=== PATIENT | female | born 1935 | race Caucasian/White ===

== ENCOUNTER → 2022-03-03 | Outpatient (CLI) | payer MEDICARE ==
[2022-03-03 21:59] LABS: Bun/Creatinine Ratio 36.8 (12.0-20.0); Calcium, Blood 9.4 mg/dL (8.5-10.1); Creatinine, Blood 0.84 mg/dL (0.40-1.00); Potassium, Blood 3.9 mmol/L (3.5-5.5)
== END | disposition home or self-care (01) ==
LOC: LAB 18:36 → LAB SHORT 18:36
PROVIDERS: Physician Assistant
DX: I10 Essential (primary) hypertension (principal)
CPT/HCPCS: 80048

== ENCOUNTER 2023-03-01 20:14 | Inpatient (IN) | payer OTHER ==
[~2023-03-01] VITALS: Ht 157.5 cm; Wt 50.6 kg
[2023-03-01 20:31] LABS: Hematocrit 45.5 % (33.0-51.0); Hemoglobin 14.7 g/dL (11.5-16.0); Mean Corpuscular HGB 30.8 pg (26.0-34.0); Mean Corpuscular HGB Conc 32.3 g/dL (31.5-36.5); Mean Corpuscular Volume 95 fL (80-100); Mean Platelet Volume 10.5 fL (9.1-12.4); Platelet Count 336 K/mm3 (150-400); RDW Coefficient Variation 12.2 % (11.7-14.2); RDW Standard Deviation 42.6 fL (35.1-46.3); Red Blood Cell Count 4.78 M/mm3 (3.80-5.20); White Blood Cell Count 20.77 K/mm3 (4.00-11.30)
[2023-03-01 20:57] LABS: Albumin/Globulin Ratio 1.1 (0.8-1.8); Bilirubin, Total 0.5 mg/dL (0.1-1.0); Bun/Creatinine Ratio 16.2 (12.0-20.0); Calcium, Blood 9.9 mg/dL (8.5-10.1); Creatinine, Blood 0.87 mg/dL (0.40-1.00); Globulin, Blood 3.6 g/dL (2.2-4.0); Potassium, Blood 4.4 mmol/L (3.5-5.5); Total Protein, Blood 7.6 g/dL (6.4-8.2)
[2023-03-01 21:23] LABS: Source, Urine Foley catheter
[2023-03-01 21:53] LABS: Bilirubin, Urine Neg (Neg); Blood, Urine Neg (Neg); Glucose Qualitative, Urine Neg (Neg); Ketones, Urine 1+ (Neg); Leukocyte Esterase, Urine Neg (Neg); Nitrite, Urine Neg (Neg); Protein, Urine 1+ (Neg); Urobilinogen, Urine NORM (Normal)
[2023-03-01 21:55] LABS: BASOPHILS PERCENT MAN 1 % (0-2); EOSINOPHILS PERCENT MAN 0 % (0-6); LYMPHOCYTES % ATYPICAL MANUAL 1 % (0-0); LYMPHOCYTES ABSOLUTE MAN 15.36 K/mm3 (0.84-5.20); LYMPHOCYTES PERCENT MAN 73 % (21-46); MONOCYTES ABSOLUTE MAN 0.83 K/mm3 (0.16-1.47); MONOCYTES PERCENT MAN 4 % (4-13); NEUTROPHILS ABSOLUTE MAN 4.36 K/mm3 (1.96-9.15); SEG NEUTROPHILS PERCENT MAN 21 % (41-73); TOTAL CELLS COUNTED 100
[2023-03-01 22:03] LABS: Appearance, Urine Clear (Clear); Color, Urine Pale Yellow (P-Yellow)
[2023-03-01 22:08] LABS: U Amphetamine Screen Not Detected; U Barbituate Screen Not Detected; U Benzodiazapine Screen Not Detected; U Buprenorphine Screen Not Detected; U Cannabinoids Screen DETECTED; U Cocaine Screen Not Detected; U Methadone Screen Not Detected; U Methamphetamine Screen Not Detected; U Opiates Screen Not Detected; U Oxycodone Screen Not Detected; U Phencyclidine Screen Not Detected; U Propoxyphene Screen Not Detected
[2023-03-01 22:17] LABS: Base Excess Venous 2.8 mmol/L; Bicarbonate Venous 26.3 mmol/L (24.0-30.0); PCO2 Venous 44.2 mmHg (38-42)
[2023-03-02] VITALS (85 sets, daily range): BP systolic 97–220; BP diastolic 51–118
[2023-03-02 03:53] LABS: Hematocrit 41.8 % (33.0-51.0); Hemoglobin 14.1 g/dL (11.5-16.0); Mean Corpuscular HGB 31.1 pg (26.0-34.0); Mean Corpuscular HGB Conc 33.7 g/dL (31.5-36.5); Mean Corpuscular Volume 92 fL (80-100); Mean Platelet Volume 10.4 fL (9.1-12.4); Platelet Count 337 K/mm3 (150-400); RDW Coefficient Variation 12.2 % (11.7-14.2); RDW Standard Deviation 41.1 fL (35.1-46.3); Red Blood Cell Count 4.53 M/mm3 (3.80-5.20); White Blood Cell Count 20.88 K/mm3 (4.00-11.30)
[2023-03-02 04:16] LABS: Albumin, Blood 3.7 g/dL (3.4-5.0); Albumin/Globulin Ratio 1.2 (0.8-1.8); Bilirubin, Total 0.5 mg/dL (0.1-1.0); Bun/Creatinine Ratio 18.8 (12.0-20.0); Calcium, Blood 9.8 mg/dL (8.5-10.1); Creatinine, Blood 0.8 mg/dL (0.40-1.00); Globulin, Blood 3.2 g/dL (2.2-4.0); Potassium, Blood 3.7 mmol/L (3.5-5.5); Total Protein, Blood 6.9 g/dL (6.4-8.2)
--- NOTE | 2023-03-02 04:25 | NUR ---
PROPOFOL INFILTRATE TO LEFT UPPER ARM. NOTHING OBTAINED WITH DRAWING BACK, FLUSHED WITH NS. LEFT AC SITE DC'D. BP CUFF MOVED TO RIGHT WRIST. WHILE PROPOFOL OFF PATIENT ACTIVE IN BED PULLING AWAY FROM PAIN, BRING KNEES UP, CONTINUES TO NOT OPEN EYES.
[2023-03-02 06:36] LABS: BAND PERCENT MAN 1 % (0-8); BASOPHILS PERCENT MAN 1 % (0-2); EOSINOPHILS PERCENT MAN 0 % (0-6); LYMPHOCYTES PERCENT MAN 57 % (21-46); MONOCYTES ABSOLUTE MAN 1.46 K/mm3 (0.16-1.47); MONOCYTES PERCENT MAN 7 % (4-13); SEG NEUTROPHILS PERCENT MAN 34 % (41-73); TOTAL CELLS COUNTED 100
--- NOTE | 2023-03-02 06:36 | NUR ---
SUMMARY PATIENT REMAINS INTUBATED AND SEDATED WITH PROPOFOL [address] WITH VENT ACVC+ 16, TV 350, PEEP 5, FIO2 25% . PATIENT CONTINUES TO NOT OPEN HER EYES, NOT FOLLOWING DIRECTIONS. CAMPBELL RIGHT MORE THAN LEFT, INCREASED MOVEMENT WITH STIMULI. PULLING KNEES UP FREQUENTLY. OG IN PLACE AND CLAMPED. NICARDIPINE DRIP ON FOR ONLY SHORT TIME TONIGHT. BP 153/67.
--- NOTE | 2023-03-02 11:35 | NUR ---
SHIFT ASSESSMENT PT INTUBATED AND SEDATED, VENT SETTINGS AC-16/350/5/25% c SATS >95%. PROPOFOL @ 30MCG'S. BL SOFT WRIST RESTRAINTS ON. PT GIVEN SEDATION VACATION MID MORNING , DURING THAT TIME PT NOT FOLLOWING COMMANDS BUT MOVING ALL EXTREMITIES. COUGH AND GAG PRESENT. PUPILS REMAIN PINPOINT. OGT CLAMPED. TEMP PROBE DODGE DRAINING YELLOW URINE. NO BM. EEG SCHEDULED FOR THIS AFTERNOON. WILL MONITOR CLOSELY.
[2023-03-02] MEDS ORDERED: SERT50 PO (17:27)
[2023-03-02] MEDS ORDERED: ESCI20 (17:28)
[2023-03-02] MEDS ORDERED: DONE5 PO (17:29)
[2023-03-02] MEDS ORDERED: Desyrel150 MG PO (17:29)
--- NOTE | 2023-03-02 18:07 | NUR ---
SHIFT SUMMARY PT REMAINS INTUBATED AND SEDATED. NO CHANGES TO VENT SETTINGS. PROPOFOL CONTINUES @ 30MCG'S. EEG COMPLETED THIS AFTERNOON, AWAITING RESULTS. NO SEIZURES NOTED TODAY. TEMP PROBE DODGE DRAINING BRIGIDO URINE. 100ML/HR OF NS STARTED X 1L. FAMILY AT BEDSIDE THIS AFTERNOON, NOTIFIED THIS NURSE OF PTS ETOH USAGE, STATED PT HAS NOT HAD A DRINK IN 2 DAYS PRIOR TO SEIZURE. NO OTHER ACUTE CHANGES TODAY.
--- NOTE | 2023-03-02 20:09 | NUR ---
PATIENT REMAINS INTUBATED AND SEDATED PROPOFOL 30 MCG, PATIENT KEEPING EYES CLOSED, PUPILS PINPOINT. WITH SLIGHT STIMULI, MOVING ALL EXTREMITIES RIGHT ARM MORE THAN LEFT. PATIENT CAN STRAIGHTEN LEGS, BUT LIKES TO BEND KNEES UP TIGHT. ETT IN PLACE WITH VENT ACVC+ 16, TV 350, PEEP 5, FIO2 25% OG IN PLACE AND CLAMPED. DODGE DRAINING SMALL AMT OF BRIGIDO URINE.
[2023-03-03] VITALS (18 sets, daily range): BP systolic 104–184; BP diastolic 56–105
[2023-03-03 04:06] LABS: BASOPHILS ABSOLUTE AUTO 0.07 K/mm3 (0.00-0.23); BASOPHILS PERCENT AUTO 0 % (0-2); EOSINOPHILS ABSOLUTE AUTO 0.06 K/mm3 (0.00-0.68); EOSINOPHILS PERCENT AUTO 0 % (0-6); Hematocrit 39.4 % (33.0-51.0); Hemoglobin 13.5 g/dL (11.5-16.0); IMMATURE GRAN ABSOLUTE AUTO 0.07 K/mm3 (0.00-0.10); IMMATURE GRAN PERCENT AUTO 0 % (0-1); LYMPHOCYTES ABSOLUTE AUTO 6.64 K/mm3 (0.84-5.20); LYMPHOCYTES PERCENT AUTO 37 % (21-46); MONOCYTES ABSOLUTE AUTO 2.33 K/mm3 (0.16-1.47); MONOCYTES PERCENT AUTO 13 % (4-13); Mean Corpuscular HGB 30.8 pg (26.0-34.0); Mean Corpuscular HGB Conc 34.3 g/dL (31.5-36.5); Mean Corpuscular Volume 90 fL (80-100); Mean Platelet Volume 10.8 fL (9.1-12.4); NEUTROPHILS ABSOLUTE AUTO 8.63 K/mm3 (1.96-9.15); NEUTROPHILS PERCENT AUTO 49 % (41-73); Platelet Count 245 K/mm3 (150-400); RDW Coefficient Variation 12.2 % (11.7-14.2); RDW Standard Deviation 40.1 fL (35.1-46.3); Red Blood Cell Count 4.38 M/mm3 (3.80-5.20)
[2023-03-03 04:15] LABS: Albumin, Blood 3.3 g/dL (3.4-5.0); Albumin/Globulin Ratio 1.1 (0.8-1.8); Bilirubin, Total 0.9 mg/dL (0.1-1.0); Bun/Creatinine Ratio 24.3 (12.0-20.0); Calcium, Blood 9.1 mg/dL (8.5-10.1); Creatinine, Blood 0.74 mg/dL (0.40-1.00); Potassium, Blood 3.7 mmol/L (3.5-5.5); Total Protein, Blood 6.3 g/dL (6.4-8.2)
--- NOTE | 2023-03-03 06:28 | NUR ---
SUMMARY PATIENT REMAINS INTUBATED AND SEDATED. PROPOFOL 30 MCG CONTINUES, MOVES ALL EXTREMITIES RIGHT ARM MORE THAN LEFT ARM, LIKES TO BEND HER KNEES UP. THIS MORNING PATIENT OPENING BOTH EYES TO STIMULI, BUT CONTINUES TO NOT FOLLOW DIRECTIONS. ETT REMAINS IN PLACE WITH VENT ACVC+ 16, TV 350, PEEP 5, FIO2 25% SUCTIONING THIN CLEAR SECRETIONS VIA ETT AND ORAL. OG IN PLACE REMAINS CLAMPED. MEDICATED ONCE WITH DILAUDID DURING THE NIGHT FOR PAIN. NO ISSUES WITH HYPERTENSION T/O NIGHT.
--- NOTE | 2023-03-03 14:41 | NUR ---
Initial palliative care consult: Dede is an 87 year old with a history of dementia, HTN, osteoporosis, ETOH use and chronic pain with chronic narcotic use. Dede was admitted on 03/01/23 with new onset seizures. Attended the ICU IDT meeting earlier today and received an update. At that time, Dede was still intubated. No family at the bedside. This afternoon, Dede was successfully extubated. Attempted to visit with her in the room this afternoon. Introduced myself and asked her a couple simple yes/no questions. She stared at me and did not give any verbal response. Spoke with nursing who reports pt's dtr has not yet been in to visit her today. Requested nursing to contact PC if dtr comes to visit. Would like to discuss advanced care planning with pt's dtr as Dede is unable to participate in any meaningful conversation at this time. Spoke with CM who reports she has attempted to reach out to dtr, Shikha, twice today with messages but so far has not gotten a return call. Chart reviewed. PC to follow up with dtr when available.
--- NOTE | 2023-03-03 17:13 | NUR ---
SHIFT SUMMARY PT HAS DONE WELL THIS SHIFT S/P EXTUBATION. PT REMAINS ON 3L O2 NC. PT RESTLESS AND KICKING LEGS OUT OF THE SIDE OF THE BED MOST OF THE SHIFT. PT UNABLE TO BE REDIRECTED. PT ABLE TO SQUEEZE HANDS UPON COMMAND PRIOR TO EXTUBATION, PT NOW DOES NOT FOLLOW ANY COMMANDS. PT IS CONFUSED AND PICKING AT LINES/TUBES. PT COMPLAINED OF BACK PAIN, PT MED PER EMAR THIS AFTERNOON. PT HAS BEEN RESTING QUIETLY SINCE RECIEVING PAIN MEDS. NS INFUSING TKO. DODGE TEMP PROBE REMAINS IN PLACE WITH DARK YELLOW OUTPUT NOTED. VITAL SIGNS STABLE. PT DAUGHTER AT BEDSIDE AT THIS TIME SPEAKING WITH PALLIATIVE CARE RN. WILL CONTINUE TO MONITOR AND REPORT OFF TO ONCOMING RN.
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
[2023-03-04] VITALS (10 sets, daily range): BP systolic 153–176; BP diastolic 62–126
[2023-03-04 03:42] LABS: Hematocrit 38.5 % (33.0-51.0); Hemoglobin 13.1 g/dL (11.5-16.0); Mean Corpuscular HGB 31.2 pg (26.0-34.0); Mean Corpuscular Volume 92 fL (80-100); Mean Platelet Volume 10.6 fL (9.1-12.4); Platelet Count 268 K/mm3 (150-400); RDW Coefficient Variation 12.3 % (11.7-14.2); RDW Standard Deviation 41.1 fL (35.1-46.3); White Blood Cell Count 15.35 K/mm3 (4.00-11.30)
[2023-03-04 04:05] LABS: Albumin, Blood 3.2 g/dL (3.4-5.0); Albumin/Globulin Ratio 1.1 (0.8-1.8); Bilirubin, Total 0.7 mg/dL (0.1-1.0); Calcium, Blood 9.2 mg/dL (8.5-10.1); Creatinine, Blood 0.67 mg/dL (0.40-1.00); Globulin, Blood 2.9 g/dL (2.2-4.0); Potassium, Blood 3.3 mmol/L (3.5-5.5); Total Protein, Blood 6.1 g/dL (6.4-8.2)
--- NOTE | 2023-03-04 06:20 | NUR ---
SHIFT SUMMARY: NO ACUTE CHANGES THROUGHOUT THE NIGHT. PT WAS ABLE TO GET GOOD SLEEP UNTIL ABOUT 0200 THEN PT WOKE UP AND WAS CONFUSED AND NOT COOPERATIVE WITH CARE. PT CONTINUOUSLY ATTEMPTING TO GET OUT OF BED, PULLING AT CATHETER AND THEN PULLED OUT PIV IN RAC. AT THIS TIME, 0400, PT PLACED IN BILATERAL SWR. PT REMAINS AMS AND DOES NOT FOLLOW DIRECTIONS. PT ATTTEMPTS TO KICK AT STAFF MEMBERS WHEN ATTEMPTING PT CARE. PT EDUCATED ABOUT THE NEED TO STOP THIS BEHAVIOR BUT DOES NOT COMPREHEND. PT REMAINS ON NC @ 2LPM; SPO2 96<. SR TO ST ON MONITOR WITH SBP 150-160'S. DODGE CATH REMAINS IN PLACE AND DRAINING TO GRAVITY; BRIGIDO URINE, AND DECREASED OUTPUT. PT REFUSED ORAL CARE THIS SHIFT. STATUS CHANGE TO PCU WITH TELE EARLY THIS MORNING. BED LOWERED, CALL LIGHT IN PLACE, WILL CONTINUE TO MONITOR UNTIL ONCOMING RN ARRIVES.
--- NOTE | 2023-03-04 08:43 | NUR ---
[place] of Care: Care assumed at 0700hr. Patient alert, but only oriented to self. Confused to place, time, date, reason for admission. Bilateral soft wrist restraints in place at shift change. Restraints removed and tele-sitter initiated, with goal to prevent patient from pulling out her IV and climbing out of bed. Re-directable by [facility] staff this, but not re-directable by tele-sitter thus far this morning. Cantu cath removed shortly after shift change. 2-person assist to BEC, then to recliner. Peripheral IV x1 patent and intact. ST eval ordered for this morning. Will continue to monitor.
--- NOTE | 2023-03-04 18:06 | NUR ---
SHIFT SUMMARY: ASSUMED CARE OF PT UPON HER TRANSFER FROM ICU AT 1527. ALERT TO SELF ONLY, NOT DIRECTABLE, CANNOT UNDERSTAND VERBAL DIRECTIONS. NO RESTRAINTS IN USE. ORDER FOR NO IV ACCESS NEEDED IS PLACE. ON ROOM AIR, LUNGS CLEAR, NO COUGH. SEIZURE AND ASPIRATION PRECAUTIONS IN PLACE. DENIED PAIN, N/V. SCD'S AT BEDSIDE, BUT PT IS GETTING OOB SO FREQUENTLY THAT THESE WOULD POSE A SIGNIFICANT FALL HAZARD SO THEY ARE NOT ON. REQUESTED MEDICATION TO HELP CALM HER DOWN.
--- NOTE | 2023-03-05 05:09 | NUR ---
SHIFT SUMMARY PT LAYING IN BED DURING BEDSIDE REPORT, PT RESTING- PER REPORT SEROQUEL AND BP TO BE GIVEN FROM 1700- PT CONFUSED AND ATTEMPTING TO GET OF THE BED SEVERAL TIMES T/O SHIFT- UNABLE TO DIRECT PT WHEN UP AND AMBULATING- ASSISTED PT TO BSC- PT BOTH CONTINENT AND INCONTIENT OF URINE- PT CONFUSED T/O NIGHT AND KEPT ON ASKING THIS NURSE TO GO IN HER ROOM AND GET HER BELONGINGS- BED TO LOW POSITION, CALL LIGHT WITHIN REACH, BED ALARM IN PLACE
[2023-03-05 07:20] LABS: Thyroid Stimulating Hormone 1.62 uIU/mL (0.360-4.800)
[2023-03-05 07:34] VITALS: BP 186/88
[2023-03-05 09:17] LABS: Bun/Creatinine Ratio 18.9 (12.0-20.0); Calcium, Blood 9.3 mg/dL (8.5-10.1); Creatinine, Blood 0.53 mg/dL (0.40-1.00)
[2023-03-05 15:21] VITALS: BP 152/76
--- NOTE | 2023-03-05 18:12 | NUR ---
SHIFT SUMMARY NO ACUTE CHANGES THIS SHIFT. REMAINS CONFUSED, COGNITIVELY UNABLE TO BE DIRECTED FOR SIMPLE TASKS. ORIENTED TO SELF ONLY. WILL ATTEMPT TO GET OOB, BED ALARM ON. SAT IN THE CHAIR FOR APPROX AN HOUR, CHAIR ALARM WAS ON. PT NOT EATING THOUGH IS A FEEDER, UNABLE TO COGNITIVELY UNDERSTAND TO EAT. MEDS ARE CRUSHED AND PUT IN PUDDING. WILL SWALLOW THE PUDDING W/MEDS. NO IV SITE PER MD. IS CONTINENT/INCONTINENT OF URINE & STOOL. DID USE BSC ONCE TODAY. PLAN IS FOR PLACEMENT UPON DC.
[2023-03-05 19:47] VITALS: BP 159/75
[2023-03-06 04:14] VITALS: BP 147/69
--- NOTE | 2023-03-06 05:25 | NUR ---
SHIFT SUMMARY PT LAYING IN BED ASLEEP DURING BEDSIDE REPORT- NO S/S DISTRESS- PT AWAKE AND TOOK SCHEDULED HS MEDICATIONS- PT UP TO BSC AND URINATED WITHOUT PROBLEMS- PT CONFUSED AND HALLUCINATING HAVING CONVERSATION WITH SOMEONE IN THE ROOM- APPLIED 2L OF O2 VIA NC FOR SATS WERE 87%- RECHECK OF O2 SATS ON 2L= 93% BED LOW POSITION, CALL LIGHT WITHIN REACH, BED ALARM IN PLACE
[2023-03-06 07:28] VITALS: BP 147/65
[2023-03-06 15:30] VITALS: BP 135/66
--- NOTE | 2023-03-06 17:29 | NUR ---
SHIFT SUMMARY NO ACUTE CHANGES DURING SHIFT. PT ALERT TO SELF, CONFUSED. PT VERY LETHARGIC TODAY, POSSIBLY D/T MEDICATIONS. MEDICATION SCHEDULE CHANGED BY MD. PT REMAINS ON 2L NC. PT PENDING PLACEMENT ONCE MEDICALLY CLEARED. WILL CONTINUE TO MONITOR. CALL LIGHT WITHIN REACH.
[2023-03-06 19:42] VITALS: BP 92/52
[2023-03-06 19:44] VITALS: BP 86/52
--- NOTE | 2023-03-06 19:45 | NUR ---
NOTIFIED PTS PRIMARY RN OF PTS B/P.
[2023-03-07 00:11] VITALS: BP 113/64
[2023-03-07 04:03] VITALS: BP 120/60
--- NOTE | 2023-03-07 05:50 | NUR ---
SHIFT SUMMARY PT LAYING IN BED ASLEEP DURING BEDSIDE ROUNDS- PT TOOK SCHEDULED TRAZADONE AT BEGINNING OF SHIFT PER ORDER, ENCOURAGED PT TO DRINK FLUIDS AND PT TOOK SCHEDULED HS MEDS WITHOUT PROBLEMS, PT HALLUCINATING AND TALKING TO IMAGINARY PEOPLE T/O SHIFT - PT REMOVED SOILED BRIEF - PT ABLE TO FOLLOW DIRECTIONS TO ROLL BACK IN FORTH IN BED WHEN CLEANING HER NETTIE AREA AND APPLYING A NEW BRIEF-BED ALARM IN PLACE, BED LOW POSITION, CALL LIGHT WITHIN REACH
[2023-03-07 07:23] LABS: Albumin, Blood 2.9 g/dL (3.4-5.0); Albumin/Globulin Ratio 0.9 (0.8-1.8); Bilirubin, Total 0.3 mg/dL (0.1-1.0); Bun/Creatinine Ratio 41.5 (12.0-20.0); Calcium, Blood 9.7 mg/dL (8.5-10.1); Creatinine, Blood 0.8 mg/dL (0.40-1.00); Globulin, Blood 3.2 g/dL (2.2-4.0); Potassium, Blood 4.1 mmol/L (3.5-5.5); Total Protein, Blood 6.1 g/dL (6.4-8.2)
[2023-03-07 07:37] VITALS: BP 133/62
[2023-03-07 15:22] VITALS: BP 134/73
--- NOTE | 2023-03-07 18:15 | NUR ---
SHIFT SUMMARY/TRANSFER NOTE PT TRANSFERRED FROM ROOM 345 ON MEDICAL FLOOR. REPORT RECEIVED FROM CASSANDRA NICHOLE. PT HAS HAD NO COMPLAINTS SINCE THE TRANSFER AND IS CURRENTLY SLEEPING. WILL REPORT TO ONCOMING NURSE.
[2023-03-08 07:11] LABS: BASOPHILS ABSOLUTE AUTO 0.07 K/mm3 (0.00-0.23); BASOPHILS PERCENT AUTO 1 % (0-2); EOSINOPHILS ABSOLUTE AUTO 0.15 K/mm3 (0.00-0.68); EOSINOPHILS PERCENT AUTO 1 % (0-6); Hematocrit 43.7 % (33.0-51.0); Hemoglobin 14.3 g/dL (11.5-16.0); Mean Corpuscular HGB 30.6 pg (26.0-34.0); Mean Corpuscular HGB Conc 32.7 g/dL (31.5-36.5); Mean Corpuscular Volume 94 fL (80-100); Mean Platelet Volume 10.6 fL (9.1-12.4); Platelet Count 299 K/mm3 (150-400); RDW Coefficient Variation 12.2 % (11.7-14.2); RDW Standard Deviation 42.1 fL (35.1-46.3); Red Blood Cell Count 4.67 M/mm3 (3.80-5.20); White Blood Cell Count 13.49 K/mm3 (4.00-11.30)
[2023-03-08 07:16] LABS: IMMATURE GRAN ABSOLUTE AUTO 0.04 K/mm3 (0.00-0.10); IMMATURE GRAN PERCENT AUTO 0 % (0-1); LYMPHOCYTES ABSOLUTE AUTO 7.07 K/mm3 (0.84-5.20); LYMPHOCYTES PERCENT AUTO 52 % (21-46); MONOCYTES PERCENT AUTO 8 % (4-13); NEUTROPHILS ABSOLUTE AUTO 5.06 K/mm3 (1.96-9.15); NEUTROPHILS PERCENT AUTO 38 % (41-73)
[2023-03-08 07:20] VITALS: BP 165/67
[2023-03-08 07:27] LABS: Bun/Creatinine Ratio 46.5 (12.0-20.0); Calcium, Blood 9.8 mg/dL (8.5-10.1); Creatinine, Blood 0.67 mg/dL (0.40-1.00); Potassium, Blood 3.9 mmol/L (3.5-5.5)
--- NOTE | 2023-03-08 10:11 | NUR ---
CONCERN FOR SAFE SWALLOW THIS RN REPORTED TO DR. MENDEZ THAT PT WAS HAVING TROUBLE SWALLOWING HER PILLS THIS AM AND THERE WAS CONCERN SHE WAS ASPIRATING THEM BY THE SOUND OF HER MOIST COUGH AFTER ATTEMPTING TO SWALLOW THEM. ORDER FOR ST EVAL PLACED.
--- NOTE | 2023-03-08 10:19 | NUR ---
SPOKE WITH ST SPOKE WITH ST ABOUT PREVIOUS ST EVALUATION FROM LAST WEEK. PLAN TO START CRUSHING MEDS AND PLACE IN APPLESAUCE TO HELP WITH THE PTS ABILITY TO SWALLOW.
[2023-03-08 15:39] VITALS: BP 137/64
[2023-03-08] MEDS ORDERED: AMLO10 PO (15:44)
[2023-03-08] MEDS ORDERED: FOLI1 PO (15:44)
[2023-03-08] MEDS ORDERED: Seroquel Xr50 MG PO (15:45)
[2023-03-08] MEDS ORDERED: B-1100 M1 PO (15:45)
[2023-03-08] MEDS ORDERED: LEVE500 PO (15:45)
--- NOTE | 2023-03-08 17:07 | NUR ---
SHIFT SUMMARY PT ASKS TO GO HOME OFTEN OR WHEN SHE WILL BE LEAVING. PT REORIENTED WITH MINIMAL UNDERSTANDING. CARE MANAGEMENT WORKING ON A SAFE DC PLAN. VS REVIEWED. PT INCONT T/O SHIFT. UP IN CHAIR THIS AFTERNOON WATCHING TV. POOR APPETITE, BUT DOES EAT SOME OF EACH MEAL WITH ASSISTANCE. MEDS TO ME CRUSHED IN APPLESAUCE PT STRUGGLED WITH SWALLOWING THEM WHOLE THIS AM. NO OTHER ACUTE CHANGES IN ASSESSMENT AT THIS TIME. CALL LIGHT IN REACH.
[2023-03-09 07:44] VITALS: BP 132/68
--- NOTE | 2023-03-09 13:53 | NUR ---
Spiritual Care Visit. Pt. is soundly resting in a recliner. Family members are present and welcome my visit. On recent visitng attempts the Pt. has been unable to respond so I facilitated a life review of the Pt. and family. Consider matters of see and belief. Daughter displays evidence of trust and hope. Family verbalized gratitude for the spiritual care visit.
--- NOTE | 2023-03-09 16:23 | NUR ---
DISCHARGE PT DISCHARGED AT 1619. PT NEW WHEELCHAIR WAS DELIVERED BY [facility] PRIOR TO DC. PT GIVEN BEDBATH THIS SHIFT. PT DAUGHTER EDUCATED ON DC INSTRUCTIONS AND NEW MEDS. ENCOURAGED ABOUT THE IMPORTANCE OF PICKING THEM UP AND STARTING THEM TONIGHT, ESPECIALLY HER KEPPRA. FAMILY STATES THEY UNDERSTAND AND HAVE NO FURTHER QUESTIONS. PT WHEELED OUT BY AIDE AND DRIVEN HOME BY DAUGHTER.
== END 2023-03-09 16:19 | disposition home health service (06) | DRG 100 ==
LOC: ER 20:14 → MEDS 23:49 → ICUW 23:49 → MEDS 03-04 15:27
PROVIDERS: Emergency Medicine; Family Medicine; Family Medicine Adult Medicine; Student in an Organized Health Care Education/Training Program; ADMIT Internal Medicine
PROC: 5A1945Z Respiratory Ventilation, 24-96 Consecutive Hours (ICD-10-PCS; principal; 2023-03-01)
PROC: 0BH17EZ Insertion of Endotracheal Airway into Trachea, Via Natural or Artificial Opening (ICD-10-PCS; 2023-03-01)
PROC: 0DH67UZ Insertion of Feeding Device into Stomach, Via Natural or Artificial Opening (ICD-10-PCS; 2023-03-01)
PROC: 0T9B70Z Drainage of Bladder with Drainage Device, Via Natural or Artificial Opening (ICD-10-PCS; 2023-03-01)
DX: R56.9 Unspecified convulsions (principal); J96.90 Respiratory failure, unspecified, unspecified whether with hypoxia or hypercapnia; M54.9 Dorsalgia, unspecified; I67.9 Cerebrovascular disease, unspecified; I10 Essential (primary) hypertension; Z66 Do not resuscitate; Z51.5 Encounter for palliative care; F32.9 Major depressive disorder, single episode, unspecified; M81.0 Age-related osteoporosis without current pathological fracture; G89.4 Chronic pain syndrome; F11.11 Opioid abuse, in remission; F17.210 Nicotine dependence, cigarettes, uncomplicated; F10.20 Alcohol dependence, uncomplicated; G93.89 Other specified disorders of brain; I65.21 Occlusion and stenosis of right carotid artery; I65.02 Occlusion and stenosis of left vertebral artery; D72.829 Elevated white blood cell count, unspecified; F01.50 Vascular dementia, unspecified severity, without behavioral disturbance, psychotic disturbance, mood disturbance, and anxiety; Z79.899 Other long term (current) drug therapy
CPT/HCPCS: 31500; 36415; 51702; 70450; 70496; 70498; 71045; 80048; 80053; 82607; 82746; 82803; 82947; 84132; 84443; 85025; 85027; 87040; 92526; 92610; 93005; 93010; 94002; 94003; 94760; 95819; 96365-59; 96375-59; 97161; 97166; 97535; 99291-25; A9270; C9113; J1170; J1650; J1953; J2270; J2310; J2704; J3411; J3480; J7030; J7050; Q9967

== ENCOUNTER → 2023-05-31 | Outpatient (CLI) | payer OTHER ==
[~2023-05-31] MED LIST: AMLO10 PO; B-1100 M1 PO; DONE5 PO; Desyrel150 MG PO; ESCI20; FOLI1 PO; LEVE500 PO; SERT50 PO; Seroquel Xr50 MG PO
== END ==
LOC: LAB SHORT 13:20 → LAB 13:20
DX: R41.82 Altered mental status, unspecified (principal)
CPT/HCPCS: 87077; 87086; 87186

== ENCOUNTER 2023-06-23 17:29 | Inpatient (IN) | payer OTHER ==
[~2023-06-23] VITALS: Ht 167.6 cm; Wt 45.9 kg
[2023-06-23] MEDS ORDERED: Zestril30 MG PO (17:42)
[2023-06-23] MEDS ORDERED: TRAZ150T57 PO (17:43)
[2023-06-23 19:08] LABS: BASOPHILS ABSOLUTE AUTO 0.03 K/mm3 (0.00-0.23); BASOPHILS PERCENT AUTO 0 % (0-2); EOSINOPHILS ABSOLUTE AUTO 0.07 K/mm3 (0.00-0.68); EOSINOPHILS PERCENT AUTO 1 % (0-6); Hematocrit 32.7 % (33.0-51.0); IMMATURE GRAN ABSOLUTE AUTO 0.02 K/mm3 (0.00-0.10); IMMATURE GRAN PERCENT AUTO 0 % (0-1); LYMPHOCYTES ABSOLUTE AUTO 4.83 K/mm3 (0.84-5.20); LYMPHOCYTES PERCENT AUTO 47 % (21-46); MONOCYTES ABSOLUTE AUTO 0.62 K/mm3 (0.16-1.47); MONOCYTES PERCENT AUTO 6 % (4-13); Mean Corpuscular HGB 30.6 pg (26.0-34.0); Mean Corpuscular HGB Conc 33.6 g/dL (31.5-36.5); Mean Corpuscular Volume 91 fL (80-100); Mean Platelet Volume 9.9 fL (9.1-12.4); NEUTROPHILS ABSOLUTE AUTO 4.61 K/mm3 (1.96-9.15); NEUTROPHILS PERCENT AUTO 45 % (41-73); Platelet Count 268 K/mm3 (150-400); RDW Coefficient Variation 12.5 % (11.7-14.2); RDW Standard Deviation 42.3 fL (35.1-46.3); Red Blood Cell Count 3.59 M/mm3 (3.80-5.20); White Blood Cell Count 10.18 K/mm3 (4.00-11.30)
[2023-06-23 19:22] LABS: International Normalized Ratio 0.98; Prothrombin Time Results 10.3 Sec (9.7-11.5)
[2023-06-23 19:43] LABS: Albumin, Blood 3.4 g/dL (3.4-5.0); Albumin/Globulin Ratio 1.3 (0.8-1.8); Bilirubin, Total 0.2 mg/dL (0.1-1.0); Bun/Creatinine Ratio 26.6 (12.0-20.0); Calcium, Blood 9.4 mg/dL (8.5-10.1); Creatinine, Blood 0.68 mg/dL (0.40-1.00); Globulin, Blood 2.6 g/dL (2.2-4.0); Magnesium, Blood 1.8 mg/dL (1.6-2.4); Phosphorus, Blood 2.7 mg/dL (2.5-4.9); Potassium, Blood 3.9 mmol/L (3.5-5.5)
[2023-06-23 23:55] VITALS: BP 171/74
[2023-06-24] VITALS (16 sets, daily range): BP systolic 116–184; BP diastolic 51–143
--- NOTE | 2023-06-24 02:12 | NUR ---
ORTHO CONSULT CALLED IN
--- NOTE | 2023-06-24 04:36 | NUR ---
SHIFT SUMMARY S/P FALL, R FEMUR FX PT ARRIVED TO UNIT AT 2330. TRANSFERRED FROM [facility] TO BED WITH 4 PERSON ASST. PT REPORTS PAIN WHEN MOVING. ABLE TO MEDICATE PER EMAR. PT HAS ADVANCED DEMENTIA, ABLE TO REDIRECT EASILY. VERY FORGETFUL, THINKS SHE CAN STILL WALK. CALLS OUT FOR A PERSON NAMED "NAKUL" DURING THE NIGHT. ALL HOME MEDS WERE STARTED. TAKEN WITH APPLESAUCE AND SOME WATER. NPO AT 0030. PULLED IV OUT. ATTEMPTED TO START NEW ONE, UNSUCESSFUL. AQUIRED SKIN TEAR AFTER PULLING IV OUT, APPLIED PRESSURE, MEPILEX PLACED. BED ALARM ON. NO OTHER CONCERNS AT THIS TIME. CALL LIGHT WITHIN REACH.
[2023-06-24 06:07] LABS: BASOPHILS ABSOLUTE AUTO 0.02 K/mm3 (0.00-0.23); BASOPHILS PERCENT AUTO 0 % (0-2); EOSINOPHILS ABSOLUTE AUTO 0.01 K/mm3 (0.00-0.68); EOSINOPHILS PERCENT AUTO 0 % (0-6); Hematocrit 28.7 % (33.0-51.0); Hemoglobin 9.6 g/dL (11.5-16.0); IMMATURE GRAN ABSOLUTE AUTO 0.04 K/mm3 (0.00-0.10); IMMATURE GRAN PERCENT AUTO 0 % (0-1); LYMPHOCYTES ABSOLUTE AUTO 3.62 K/mm3 (0.84-5.20); LYMPHOCYTES PERCENT AUTO 32 % (21-46); MONOCYTES ABSOLUTE AUTO 0.79 K/mm3 (0.16-1.47); MONOCYTES PERCENT AUTO 7 % (4-13); Mean Corpuscular HGB 30.1 pg (26.0-34.0); Mean Corpuscular HGB Conc 33.4 g/dL (31.5-36.5); Mean Corpuscular Volume 90 fL (80-100); Mean Platelet Volume 10.4 fL (9.1-12.4); NEUTROPHILS ABSOLUTE AUTO 6.93 K/mm3 (1.96-9.15); NEUTROPHILS PERCENT AUTO 61 % (41-73); Platelet Count 230 K/mm3 (150-400); RDW Coefficient Variation 12.4 % (11.7-14.2); RDW Standard Deviation 40.7 fL (35.1-46.3); Red Blood Cell Count 3.19 M/mm3 (3.80-5.20); White Blood Cell Count 11.41 K/mm3 (4.00-11.30)
[2023-06-24 06:25] LABS: Albumin, Blood 3.1 g/dL (3.4-5.0); Albumin/Globulin Ratio 1.3 (0.8-1.8); Bilirubin, Total 0.5 mg/dL (0.1-1.0); Bun/Creatinine Ratio 30.7 (12.0-20.0); Calcium, Blood 9.2 mg/dL (8.5-10.1); Creatinine, Blood 0.65 mg/dL (0.40-1.00); Globulin, Blood 2.4 g/dL (2.2-4.0); Potassium, Blood 3.6 mmol/L (3.5-5.5); Total Protein, Blood 5.5 g/dL (6.4-8.2)
--- NOTE | 2023-06-24 11:42 | NUR ---
SURGERY CONSENT OBTAINED PHONE CONSENT FROM PATIENTS NEXT OF KIN, VERIFIED WITH SECOND RN HER CONSENT TO SURGERY, CONSENT FORM SIGNED AND PLACED IN HER HARD CHART.
--- NOTE | 2023-06-24 14:56 | NUR ---
Brief supportive visit this afternoon. Pt is pleasantly confused A&O to self and family only. Pt reports mild generalized pain. Ended visit to allow Pt to rest. Spoke with Primary RN Reid and reviewed plan of care. Plan for Pt to have surgery today. No immediate concerns. Called and spoke with Pt's daughter Shikha. Shikha reports at baseline Pt as assistive devices for ambulation but refuses to use them and uses wall and furniture. Pt requires assistance with bathing, dressing, and experiences intermittent incontinence. Pt at baseline is confused but on some days even more confused. Brief review of plan of care. Shikha expresses appreciation and is agreeable for continued visits and phone calls. Palliative Care will remain available
--- NOTE | 2023-06-24 15:15 | NUR ---
Into sds via bed. Pt has dementia at baseline, but currently cooperative with care. History, Chart, Medications and Allergies reviewed before start of procedure.Patient confirms NPO status and agrees with scheduled surgery. Lungs clear T/O to Auscultation, but diminished in the bases. Sats>90% on RA. Pt DONNA Trivedi to be contacted to obtaine consents for procedure.New PIV #20 started to left wrist.
--- NOTE | 2023-06-24 19:27 | NUR ---
SHIFT SUMMARY POD0 R HIP FX REPAIR, ALERT BUT ONLY OREIENTED TO SELF, VERY DEMENTED BUT PLEASANT, COOPERATIVE WITH CARE BUT REPEATS QUESTIONS REGULARLY, GAUZE AND COMPRESSION TAPE TO R HIP AND THIGH FROM OR, PT WAKES TO VERBAL STIMULI BUT WAS VERY SLEEPY/SOMNOLENT, SHE DENIES PAIN AT THIS TIME BUT HAS PAIN MEDS AVAILABLE WHEN NEEDED. CALL LIGHT IN REACH, REPORT GIVEN TO RAJ TRUJILLO.
--- NOTE | 2023-06-24 20:40 | NUR ---
MEDICATIONS PT WOULD NOT SWALLOW WHOLE MED IN [facility]. PT TOOK MEDICATION AND HANDED THEM BACK TO ME. ONE MEDICATION FELL ON THE FLOOR, AFTER PT REMOVED IT FROM HER MOUTH. ADDITIONAL MEDICATION REMOVED FROM [facility]. ALL OTHER MEDICATIONS CRUSHED IN APPLESAUCE AND PT TOLERATED SWALLOWING THEM.
[2023-06-25 00:17] VITALS: BP 143/66
--- NOTE | 2023-06-25 04:15 | NUR ---
SHIFT SUMMARY POD 1 R INTERMEDULLARY TROCHANTERIC HIP NAILING. GAUZE/PRESSURE TAPE x2 C/D/I. HX SEVERE DEMENTIA, PT ONLY ORIENTED TO SELF, EASILY REDIRECTABLE. PT HAS BEEN SLEEPY THROUGHOUT MOST OF THE SHIFT. PT INCONTINENT, ATTENS IN PLACE; PT ATTEMPTS TO REMOVE ATTENS, ONE TOTAL SATURATION OF THE BED WITH URINE THIS SHIFT. PT INDICATES PAIN WHEN TURNING IN BED FOR NETTIE CARE. BEDREST AT THIS TIME, AWAITING PT EVAL. PT WEANED OFF 02 NC OVERNIGHT, BI OX IN USE. PT NEEDED MEDICATIONS CRUSHED IN APPLESAUCE, WHEN GIVEN WHOLE, THE PATIENT WOULD TAKE THE PILL OUT OF HER MOUTH AND HAND IT BACK TO ME. BED IN LOWEST POSITION, BED ALARM ON, WILL REPORT TO DAY RN.
[2023-06-25 04:48] VITALS: BP 141/66
[2023-06-25 04:49] LABS: Hematocrit 23.8 % (33.0-51.0); Mean Corpuscular HGB 30.5 pg (26.0-34.0); Mean Corpuscular HGB Conc 33.6 g/dL (31.5-36.5); Mean Corpuscular Volume 91 fL (80-100); Mean Platelet Volume 10.6 fL (9.1-12.4); Platelet Count 246 K/mm3 (150-400); RDW Coefficient Variation 12.8 % (11.7-14.2); RDW Standard Deviation 42.5 fL (35.1-46.3); Red Blood Cell Count 2.62 M/mm3 (3.80-5.20)
[2023-06-25 05:11] LABS: Bun/Creatinine Ratio 30.5 (12.0-20.0); Calcium, Blood 8.9 mg/dL (8.5-10.1); Creatinine, Blood 0.75 mg/dL (0.40-1.00); Magnesium, Blood 1.7 mg/dL (1.6-2.4); Potassium, Blood 4.1 mmol/L (3.5-5.5)
--- NOTE | 2023-06-25 05:32 | NUR ---
IV ACCESS PT PULLED OUT HER IV. THIRD TIME SINCE ADMITTANCE. BLOOD SPOTTTING THROUGHOUT BED, 1x1 AND COBAN PUT OVER SITE TO STOP BLEEDING. FULL LINEN CHANGE. WILL ATTEMPT TO PLACE NEW VASCULAR ACCESS.
[2023-06-25 06:10] LABS: BASOPHILS PERCENT MAN 0 % (0-2); EOSINOPHILS PERCENT MAN 0 % (0-6); LYMPHOCYTES ABSOLUTE MAN 5.79 K/mm3 (0.84-5.20); LYMPHOCYTES PERCENT MAN 42 % (21-46); MONOCYTES ABSOLUTE MAN 0.41 K/mm3 (0.16-1.47); MONOCYTES PERCENT MAN 3 % (4-13); NEUTROPHILS ABSOLUTE MAN 7.59 K/mm3 (1.96-9.15); SEG NEUTROPHILS PERCENT MAN 55 % (41-73); TOTAL CELLS COUNTED 100
--- NOTE | 2023-06-25 07:16 | NUR ---
ASSUMED CARE: PT LAYING IN BED, CALLING OUT TO STAFF. CONFUSED ABOUT WHERE SHE IS AND REQUIRES REORIENTATION. FOREST [employer] AND POLICY PROFESSOR AT BEDSIDE AT THIS TIME. PT FREQUENTLY PULLS IVS AND REMOVES O2. SATURATION CURRENTLY LOW TO MID 90S ON RA.
[2023-06-25 07:18] VITALS: BP 152/62
--- NOTE | 2023-06-25 08:13 | NUR ---
NIGHT RN SPOKE TO DR RODRIGUEZ TO MAKE HIM AWARE OF LACK OF IV ACCESS. STATES PT NEEDS ABX DOSE. MESSAGE FOR PCU EQUITIES ANALYST TO ATTEMPT ACCESS.
--- NOTE | 2023-06-25 10:44 | NUR ---
Pt resting in recliner chair. Pt is pleasantly confused and denies pain at this time. Pt engages in non sensical conversation. Offered brief supportive visit. Spoke with Primary RN Jasmin and discussed case. Therapy has not worked with Pt yet. Spoke with Dr Norton and discussed case. It appears Pt's code status was changed for surgery and was not switched back to DNR. Placed DNR order per V/O from Dr Norton. Palliative Care will remain available
[2023-06-25 14:21] VITALS: BP 115/56
--- NOTE | 2023-06-25 14:41 | NUR ---
PT RETURNED FROM PACU WITH GAUZE AND PRESSURE TAPE TO RIGHT HIP IN TWO SITES. 2L O2 AT THIS TIME VIA NC, NSR ON TELE. DR BOYD CAME TO CHECK IN ON PT. PT DROWSY BUT ROUSES EASILY. NO ACUTE NEEDS OR CONCERNS AT THIS TIME.
--- NOTE | 2023-06-25 18:02 | NUR ---
SHIFT SUMMARY: PT SITTING IN CHAIR MAJORITY OF SHIFT. AMBULATES WITH ONE ASSIST, FWW AND GAIT BELT. MEDICATED X1 FOR PAIN AFTER USING COMMODE. PLANS FOR DC TO SNF WHEN BED AVAILABLE. DAUGHTER AT BEDSIDE THIS AFTERNOON. NO ACUTE NEEDS OR CONCERNS AT THIS TIME.
[2023-06-25 19:27] VITALS: BP 119/54
[2023-06-26] VITALS (7 sets, daily range): BP systolic 87–165; BP diastolic 47–73
--- NOTE | 2023-06-26 04:12 | NUR ---
SHIFT SUMMARY; NO ACUTE CHANGES OVERNIGHT. THE PT IS AXO X1, TO SELF ONLY. THE PT OFTEN CAN NOT CARRY OUT A COMPLETE THOUGHT. THE PT IS A 2X MAX ASSIST W/ A FWW AND A GAIT BELT. THE PT IS VERY RIGID WHEN ATTEMPTING TO STAND AND PIVOT HER FROM THE BED TO THE BSC OR VICE VERSA. THE PT IS POD 2 FOR A R HIP FX REPAIR. THERE IS GAUZE W/ PRESSURE TAPE DRESSING PRESENT ON THE R HIP. THE DRESSING IS C/D/I. THE PT HAS BEEN MEDICATED ONCE FOR PAIN W/ GOOD RELIEF. THE PT HAS BEEN RESTING IN BED FOR THE MAJORITY OF THE NIGHT. THE PT DENIES ANY SOB, CHEST PAIN/PRESSURE OR N/V T/O THE NIGHT. CURRENTLY THE PT IS SLEEPING IN BED WITH THE BED IN THE LOWEST POSITION AND THE CALL LIGHT AT BEDSIDE. FIRE SAFETY MAINTAINED T/O THE NIGHT.
[2023-06-26 04:44] LABS: Hematocrit 21.8 % (33.0-51.0); Hemoglobin 7.4 g/dL (11.5-16.0); Mean Corpuscular HGB 30.8 pg (26.0-34.0); Mean Corpuscular HGB Conc 33.9 g/dL (31.5-36.5); Mean Corpuscular Volume 91 fL (80-100); Mean Platelet Volume 10.5 fL (9.1-12.4); Platelet Count 237 K/mm3 (150-400); RDW Coefficient Variation 12.9 % (11.7-14.2); RDW Standard Deviation 42.5 fL (35.1-46.3); White Blood Cell Count 14.14 K/mm3 (4.00-11.30)
[2023-06-26 05:10] LABS: Bun/Creatinine Ratio 34.9 (12.0-20.0); Calcium, Blood 8.9 mg/dL (8.5-10.1); Creatinine, Blood 0.8 mg/dL (0.40-1.00)
[2023-06-26 05:44] LABS: BASOPHILS PERCENT MAN 0 % (0-2); EOSINOPHILS ABSOLUTE MAN 0.14 K/mm3 (0.00-0.68); EOSINOPHILS PERCENT MAN 1 % (0-6); LYMPHOCYTES % ATYPICAL MANUAL 1 % (0-0); LYMPHOCYTES ABSOLUTE MAN 5.79 K/mm3 (0.84-5.20); LYMPHOCYTES PERCENT MAN 40 % (21-46); MONOCYTES ABSOLUTE MAN 0.84 K/mm3 (0.16-1.47); MONOCYTES PERCENT MAN 6 % (4-13); NEUTROPHILS ABSOLUTE MAN 7.35 K/mm3 (1.96-9.15); SEG NEUTROPHILS PERCENT MAN 52 % (41-73); TOTAL CELLS COUNTED 100
[2023-06-26 12:29] LABS: Source, Urine Clean Catch
[2023-06-26 12:53] LABS: Appearance, Urine Clear (Clear); Bilirubin, Urine Neg (Neg); Blood, Urine Neg (Neg); Color, Urine Yellow (P-Yellow); Glucose Qualitative, Urine Neg (Neg); Ketones, Urine Neg (Neg); Leukocyte Esterase, Urine Neg (Neg); Nitrite, Urine Neg (Neg); Protein, Urine Neg (Neg); Urobilinogen, Urine NORM (Normal)
--- NOTE | 2023-06-26 17:41 | NUR ---
SUMMARY C/O PAIN ON R HIP ONLY WHEN UP AND MOVING, 2 PERSON ASSIST TO THE CHAIR AND BSC, TOLERATED FAIRLY WELL WITH REPEATED CUEING, DOESN'T ALWAYS FOLLOW TOE TOUCH WEIGHT BEARING PRECAUTIONS, PLEASANT AND COOPERATIVE, DENIES ANY SOB TODAY, 96-98% ON RA THIS AFTERNOON, HAD 2 BM TODAY, NO ACUTE CHANGES THIS SHIFT.
--- NOTE | 2023-06-26 22:16 | NUR ---
RAPID RESPONSE RAPID RESPONSE CALLED DUE TO PATIENT LOOSING CONSCIOUSNESS ON THE BSC. PT WAS UP OOB TO BS TO USE THE BATHROOM. PT SLUMPED TO THE LEFT SIDE AND SAID SHE FELT IF SOMETHING WAS WRONG. I STOOD THE PATIENT UP USING THE GAIT BELT TO ASSIST HER BACK TO BED AND SHE WENT LIMP, COMPLETELY UNRESPONSIVE. NOTED THAT THE PT HAD SOILED HERSELF IN BED EVEN AFTER USING THE BSC. PT WAS SAT DOWN ON THE BSC AND A PULSE CHECK WAS PERFORMED. PT WAS SPONTANEOUSLY BREATHING. OTHER NURSES ARRIVED TO THE ROOM AND THE PT WAS LIFTED INTO THE BED AND A SET OF VITALS TAKEN. PT PLACED ON 2LVIA NC BY RESPIRATORY THERAPY. PT BEGAN TO RESPOND TO STERNAL RUBS AND EVENTUALLY OPENED HER EYES AND BEGAN TO CONVORSATE. HOSPITALIST ORDERED TELE AND LEFT THE PATIENT WAS STABLE. PT NOW REMAINS IN BED, APPEARS LETHARGIC BUT RESPONDING APPROPRIATELY. NO NARCOTICS HAVE BEEN ADMINISTERED AT THIS POINT T/O MY SHIFT. IV FLUIDS INFUSING. PLAN TO CHECK VITALS AND MONITOR PATIENT, CALL HOSPITALIST WITH FURTHER CONCERN
[2023-06-27] VITALS (9 sets, daily range): BP systolic 97–155; BP diastolic 42–77
[2023-06-27 04:13] LABS: BASOPHILS ABSOLUTE AUTO 0.02 K/mm3 (0.00-0.23); BASOPHILS PERCENT AUTO 0 % (0-2); EOSINOPHILS ABSOLUTE AUTO 0.04 K/mm3 (0.00-0.68); EOSINOPHILS PERCENT AUTO 0 % (0-6); Hematocrit 20.5 % (33.0-51.0); Hemoglobin 6.8 g/dL (11.5-16.0); IMMATURE GRAN ABSOLUTE AUTO 0.04 K/mm3 (0.00-0.10); IMMATURE GRAN PERCENT AUTO 0 % (0-1); LYMPHOCYTES ABSOLUTE AUTO 4.71 K/mm3 (0.84-5.20); LYMPHOCYTES PERCENT AUTO 37 % (21-46); MONOCYTES ABSOLUTE AUTO 1.13 K/mm3 (0.16-1.47); MONOCYTES PERCENT AUTO 9 % (4-13); Mean Corpuscular HGB 30.5 pg (26.0-34.0); Mean Corpuscular HGB Conc 33.2 g/dL (31.5-36.5); Mean Corpuscular Volume 92 fL (80-100); Mean Platelet Volume 10.7 fL (9.1-12.4); NEUTROPHILS ABSOLUTE AUTO 6.71 K/mm3 (1.96-9.15); NEUTROPHILS PERCENT AUTO 53 % (41-73); Platelet Count 221 K/mm3 (150-400); RDW Coefficient Variation 12.9 % (11.7-14.2); RDW Standard Deviation 43.4 fL (35.1-46.3); Red Blood Cell Count 2.23 M/mm3 (3.80-5.20); White Blood Cell Count 12.65 K/mm3 (4.00-11.30)
[2023-06-27 04:32] LABS: Bun/Creatinine Ratio 25.4 (12.0-20.0); Calcium, Blood 8.2 mg/dL (8.5-10.1); Creatinine, Blood 0.71 mg/dL (0.40-1.00); Potassium, Blood 3.7 mmol/L (3.5-5.5)
--- NOTE | 2023-06-27 04:59 | NUR ---
SHIFT SUMMARY POD3 RIGHT HIP PINNING, SMALL AREA OF EXUDATE NOTED ON AQUACELL. BRUISING NOTED ON THE PATIENTS THIGH AT THE BEGINNING OF THIS SHIFT, THIS HAS SIGNIFIGANTLY GROWN T/O THE NIGHT AND NOW WRAPS AROUND THE INSIDE OF THE PATIENTS THIGH. PT REPORTS THIS IS PAINFUL AND WARM TO THE TOUCH. AM LABS SHOW LOW H/H, DR FUNES ORDERED CT SCAN AND 1U PRBC THIS AM. PT HAS NOT BEEN OOB SINCE RAPID RESPONSE, SEE PREVIOUS NOTE FOR DETAILS. INCONTINENT VOID NOTED. VSS. PT REMAINS ON 2L VIA NC, PT UNABLE TO BE WEANED AT THIS TIME. PT HAS SLEPT ON AND OFF T/O THE NIGHT, APPEARS LETHARGIC. NO NARCOTICS GIVEN T/O THE NIGHT.
--- NOTE | 2023-06-27 06:42 | NUR ---
PATIENT UPDATE PATIENT BECOMING INCREASINLY LETHARGIC, VITAL SIGNS STABLE AT THIS TIME. TELE READS SR 92. RLE WRAPPED WITH RE AT SITE OF HEMATOMA FOR PRESSURE. AWAITING CT SCAN AT THIS TIME. AWAITING BLOOD TO BE READY TO ADMINISTER. PT NOTED TO SHIVER, OR SLIGHTLY SHAKE. C/O BEING COLD, ORAL TEMP WNL. NEW DX OF SEIZURES IN FEBRUARY, SEIZURE PADS PLACED ON BED FOR SAFETY.
--- NOTE | 2023-06-27 07:22 | NUR ---
PT TAKEN TO CT SCAN.
--- NOTE | 2023-06-27 10:35 | NUR ---
1 UNIT PRBC STARTED THIS AM, PT CURRENTLY IN BED BUT KEEPS ATTEMPTING TO GET OOB, REFUSED TO USE BED HAIRSTON, DODGE CATH PLACED THIS AM, UNABLE TO GET PT OOB SAFELY DUE TO SYNCOPAL EPISODE LAST NIGHT AND LOW H&H AND HEMATOMA ON L HIP AREA, PULLING AT LINES AND TUBES, PHOTOGRAPHY MANAGER HAS BEENIN PT'S ROOM FOR CLOSER MONITORING.
--- NOTE | 2023-06-27 11:19 | NUR ---
1:1 SITTER IN PT'S ROOM FOR SAFETY.
[2023-06-27 13:33] LABS: Hematocrit 22.1 % (33.0-51.0); Hemoglobin 7.3 g/dL (11.5-16.0)
--- NOTE | 2023-06-27 18:42 | NUR ---
SUMMARY PT MORE CONFUSED AND ANXIOUS THIS AM, PULLING AT LINES AND ATTEMPTING TO GET OOB, RECEIVED 1 UNIT PRBC, HAD 1:1 SITTER FOR SAFETY, PT WAS MORE CALM AFTER BLOOD TRANSFUSION AND TAKING A NAP THIS AFTERNOON, 1:1 SITTER DC'D THIS AFTERNOON, PT WAS RESTLESS THIS AFTERNOON, ASSISTED TO RECLINER CHAIR, PT IS DOING BETTER, VISITING WITH DAUGHTER WILMER, MORE PLEASANT AND COOPERATIVE THIS AFTERNOON, NO SYNCOPAL EPISODES OR SEIZURE ACTIVITY NOTED, NO OTHER CHANGES THIS SHIFT.
[2023-06-28 04:24] VITALS: BP 149/59
[2023-06-28 05:34] LABS: Hematocrit 22.2 % (33.0-51.0); Hemoglobin 7.3 g/dL (11.5-16.0); Mean Corpuscular HGB 29.2 pg (26.0-34.0); Mean Corpuscular HGB Conc 32.9 g/dL (31.5-36.5); Mean Corpuscular Volume 89 fL (80-100); Mean Platelet Volume 10.6 fL (9.1-12.4); Platelet Count 198 K/mm3 (150-400); RDW Coefficient Variation 16.8 % (11.7-14.2); White Blood Cell Count 10.97 K/mm3 (4.00-11.30)
[2023-06-28 05:54] LABS: Albumin, Blood 2.1 g/dL (3.4-5.0); Albumin/Globulin Ratio 0.8 (0.8-1.8); Bilirubin, Total 0.5 mg/dL (0.1-1.0); Bun/Creatinine Ratio 18.7 (12.0-20.0); Calcium, Blood 8.3 mg/dL (8.5-10.1); Creatinine, Blood 0.64 mg/dL (0.40-1.00); Globulin, Blood 2.6 g/dL (2.2-4.0); Potassium, Blood 4.1 mmol/L (3.5-5.5); Total Protein, Blood 4.7 g/dL (6.4-8.2)
[2023-06-28 05:57] LABS: BASOPHILS PERCENT MAN 1 % (0-2); EOSINOPHILS PERCENT MAN 1 % (0-6); LYMPHOCYTES ABSOLUTE MAN 4.38 K/mm3 (0.84-5.20); LYMPHOCYTES PERCENT MAN 40 % (21-46); MONOCYTES ABSOLUTE MAN 0.32 K/mm3 (0.16-1.47); MONOCYTES PERCENT MAN 3 % (4-13); NEUTROPHILS ABSOLUTE MAN 6.03 K/mm3 (1.96-9.15); SEG NEUTROPHILS PERCENT MAN 55 % (41-73); TOTAL CELLS COUNTED 100
--- NOTE | 2023-06-28 06:13 | NUR ---
SHIFT SUMMARY POD4 RIGHT HIP NAILING. TOP AQUACEL CHANGED D/T SS SATURATION. PT IS MOVING LEG INDEPENDENTLY, BUT C/O PAIN. MEDICATED WITH TORADOL, TYLENOL, AND ULTRAM. PT SLEPT ON AND OFF T/O THE NIGHT. CONFUSION INCREASED T/O THE NIGHT, PT YELLING OUT. PT REMAINED PLEASENT THOUGH. DODGE REMAINS IN PLACE. DRAINING YELLOW URINE. NO STOOL NOTED. PT TOLLERATED MINIMAL PO INTAKE. NO ACUTE EVENTS. TELE READS SINUS T/O THE NIGHT.
[2023-06-28 07:31] VITALS: BP 155/62
[2023-06-28 11:42] VITALS: BP 164/70
[2023-06-28 14:32] VITALS: BP 173/67
[2023-06-28] MEDS ORDERED: TRAM50 PO (15:44)
[2023-06-28] MEDS ORDERED: XARELTO10 M1 PO (15:44)
--- NOTE | 2023-06-28 18:04 | NUR ---
DISCHARGE SUMMARY S/P R HIP FX REPAIR, PT CONFUSED AND UNABLE TO FOLLOW DIRECTIONS MOST OF THE TIME, DISCHARGE PACKET PUT TOGETHER AND GIVEN TO HER SON WHO IS ONE OF HER CARETAKERS WHICH CONTAINED ALL OF HER DISCHARGE INSTRUCTIONS AND PRESCRIPTION/PRESCRIPTION INFORMATION. IV REMOVED PRIOR TO DC, DODGE OUT PRIOR TO DC. PT PICKED UP BY EMS TO BE TRANSPORTED HOME.
[2023-06-29] MEDS ORDERED: DONEPEZIL HCL5 M2 PO (02:36)
[2023-06-29] MEDS ORDERED: AMLODIPINE BESY10 MG PO (02:37)
== END 2023-06-28 17:36 | disposition home health service (06) | DRG 481 ==
LOC: ER 17:29 → SURS 22:53
PROVIDERS: Emergency Medicine; Family Medicine; Hospitalist; Orthopaedic Surgery; ADMIT Internal Medicine
PROC: 0QS634Z Reposition Right Upper Femur with Internal Fixation Device, Percutaneous Approach (ICD-10-PCS; principal; 2023-06-24 15:30)
PROC: 30233N1 Transfusion of Nonautologous Red Blood Cells into Peripheral Vein, Percutaneous Approach (ICD-10-PCS; 2023-06-26)
DX: S72.141A Displaced intertrochanteric fracture of right femur, initial encounter for closed fracture (principal); L76.32 Postprocedural hematoma of skin and subcutaneous tissue following other procedure; I10 Essential (primary) hypertension; F32.A Depression, unspecified; R56.9 Unspecified convulsions; Z66 Do not resuscitate; F01.50 Vascular dementia, unspecified severity, without behavioral disturbance, psychotic disturbance, mood disturbance, and anxiety; R55 Syncope and collapse; F10.10 Alcohol abuse, uncomplicated; D64.9 Anemia, unspecified; R09.02 Hypoxemia; Z79.899 Other long term (current) drug therapy; Z86.73 Personal history of transient ischemic attack (TIA), and cerebral infarction without residual deficits; Z98.1 Arthrodesis status; W18.39XA Other fall on same level, initial encounter; Y83.8 Other surgical procedures as the cause of abnormal reaction of the patient, or of later complication, without mention of misadventure at the time of the procedure
CPT/HCPCS: 36415; 36430; 71045; 71046; 72193; 73502; 73552; 80048; 80053; 81003; 83735; 84100; 85014; 85018; 85025; 85610; 85730; 86850; 86900; 86901; 86920; 93005; 93010; 94760; 94762; 96374; 97110; 97162; 97166; 97530; 99285-25; A9270; C1713; J0360; J0690; J1100; J1650; J1885; J2250; J2405; J2704; J3010; J7030; J7040; J7120; P9016; Q9967

== ENCOUNTER 2023-06-29 00:07 | Emergency (ER) | payer OTHER ==
[~2023-06-29] VITALS: Ht 170.2 cm; Wt 61.7 kg
[~2023-06-29 00:07] MED LIST changes: +TRAM50 PO; +TRAZ150T57 PO; +XARELTO10 M1 PO; +Zestril30 MG PO
[2023-06-29] MEDS ORDERED: DONEPEZIL HCL5 M2 PO (02:36)
[2023-06-29] MEDS ORDERED: AMLODIPINE BESY10 MG PO (02:37)
[2023-06-29 02:45] VITALS: BP 144/54
== END 2023-06-29 03:48 | disposition home or self-care (01) ==
LOC: ER 00:07
DX: M25.551 Pain in right hip (principal); F03.90 Unspecified dementia, unspecified severity, without behavioral disturbance, psychotic disturbance, mood disturbance, and anxiety; I10 Essential (primary) hypertension; F32.A Depression, unspecified; Z87.81 Personal history of (healed) traumatic fracture; Z79.899 Other long term (current) drug therapy; Z79.01 Long term (current) use of anticoagulants
CPT/HCPCS: 73502; 99284-25; A9270

== ENCOUNTER 2023-06-29 16:50 | Inpatient (IN) | payer OTHER ==
[~2023-06-29] VITALS: Ht 170.2 cm; Wt 52.5 kg
[~2023-06-29 16:50] MED LIST changes: +AMLODIPINE BESY10 MG PO; +DONEPEZIL HCL5 M2 PO
[2023-06-29 19:25] LABS: Hematocrit 24.9 % (33.0-51.0); Hemoglobin 8.3 g/dL (11.5-16.0); Mean Corpuscular HGB 29.3 pg (26.0-34.0); Mean Corpuscular HGB Conc 33.3 g/dL (31.5-36.5); Mean Corpuscular Volume 88 fL (80-100); Mean Platelet Volume 10.3 fL (9.1-12.4); Platelet Count 320 K/mm3 (150-400); RDW Coefficient Variation 15.4 % (11.7-14.2); RDW Standard Deviation 49.1 fL (35.1-46.3); Red Blood Cell Count 2.83 M/mm3 (3.80-5.20); White Blood Cell Count 14.69 K/mm3 (4.00-11.30)
[2023-06-29 19:43] LABS: BASOPHILS ABSOLUTE MAN 0.14 K/mm3 (0.00-0.23); BASOPHILS PERCENT MAN 1 % (0-2); EOSINOPHILS ABSOLUTE MAN 0.14 K/mm3 (0.00-0.68); EOSINOPHILS PERCENT MAN 1 % (0-6); LYMPHOCYTES ABSOLUTE MAN 6.02 K/mm3 (0.84-5.20); LYMPHOCYTES PERCENT MAN 41 % (21-46); MONOCYTES ABSOLUTE MAN 0.73 K/mm3 (0.16-1.47); MONOCYTES PERCENT MAN 5 % (4-13); NEUTROPHILS ABSOLUTE MAN 7.63 K/mm3 (1.96-9.15); SEG NEUTROPHILS PERCENT MAN 52 % (41-73); TOTAL CELLS COUNTED 100
[2023-06-29 20:02] LABS: Albumin, Blood 2.4 g/dL (3.4-5.0); Albumin/Globulin Ratio 0.8 (0.8-1.8); Bilirubin, Total 0.7 mg/dL (0.1-1.0); Bun/Creatinine Ratio 22.4 (12.0-20.0); Calcium, Blood 8.8 mg/dL (8.5-10.1); Creatinine, Blood 0.63 mg/dL (0.40-1.00); Total Protein, Blood 5.4 g/dL (6.4-8.2)
[2023-06-29 20:25] LABS: Influenza A, PCR NEGATIVE (NEGATIVE); Influenza B, PCR NEGATIVE (NEGATIVE); Resp Syncytial Virus, PCR NEGATIVE (NEGATIVE); SARS-Cov-2 (COVID-19) PCR, MMC NEGATIVE (NEGATIVE)
[2023-06-30 01:47] VITALS: BP 131/79
--- NOTE | 2023-06-30 04:53 | NUR ---
SHIFT SUMMARY NOC ADMIT FROM ED WITH ARF/HYPOXIA. PT HAS HX OF DEMENTIA AND IS CONFUSED BASELINE. PT ON 2L/NC O2 BUT BASELINE IS RA AT HOME. PT HAS EXTENSIVE BRUISING ON ENTURE R NETTIE AREA FROM PREVIOUS FALL AT HOME RECENTLY. PT IS A/O TO SELF AND HIGHLY CONFUSED. PT HAS NS INFUSING @ 75 ML/HR. PT IV IS HIGHLY PROTECTED DUE TO PT PULLING PREVIOUS IV IN ED. PT IS CURRENTLY RESTING WITH TAB ALARM ON, BED IN LOWEST POSITION, AND CALL LIGHT WITHIN REACH.
[2023-06-30 05:35] LABS: Hematocrit 25.3 % (33.0-51.0); Hemoglobin 8.2 g/dL (11.5-16.0); Mean Corpuscular HGB 28.8 pg (26.0-34.0); Mean Corpuscular HGB Conc 32.4 g/dL (31.5-36.5); Mean Corpuscular Volume 89 fL (80-100); Mean Platelet Volume 10.1 fL (9.1-12.4); Platelet Count 318 K/mm3 (150-400); RDW Coefficient Variation 15.2 % (11.7-14.2); RDW Standard Deviation 48.8 fL (35.1-46.3); Red Blood Cell Count 2.85 M/mm3 (3.80-5.20); White Blood Cell Count 12.99 K/mm3 (4.00-11.30)
[2023-06-30 06:18] LABS: BASOPHILS PERCENT MAN 0 % (0-2); EOSINOPHILS ABSOLUTE MAN 0.12 K/mm3 (0.00-0.68); EOSINOPHILS PERCENT MAN 1 % (0-6); LYMPHOCYTES % ATYPICAL MANUAL 3 % (0-0); LYMPHOCYTES ABSOLUTE MAN 2.46 K/mm3 (0.84-5.20); LYMPHOCYTES PERCENT MAN 16 % (21-46); MONOCYTES ABSOLUTE MAN 0.51 K/mm3 (0.16-1.47); MONOCYTES PERCENT MAN 4 % (4-13); NEUTROPHILS ABSOLUTE MAN 9.87 K/mm3 (1.96-9.15); SEG NEUTROPHILS PERCENT MAN 76 % (41-73); TOTAL CELLS COUNTED 100
[2023-06-30 06:54] LABS: Albumin, Blood 2.5 g/dL (3.4-5.0); Albumin/Globulin Ratio 0.9 (0.8-1.8); Bilirubin, Total 0.7 mg/dL (0.1-1.0); Bun/Creatinine Ratio 16.7 (12.0-20.0); Calcium, Blood 8.7 mg/dL (8.5-10.1); Creatinine, Blood 0.66 mg/dL (0.40-1.00); Globulin, Blood 2.9 g/dL (2.2-4.0); Total Protein, Blood 5.4 g/dL (6.4-8.2)
[2023-06-30 07:54] VITALS: BP 157/67
[2023-06-30 14:21] LABS: Potassium, Blood 3.9 mmol/L (3.5-5.5)
[2023-06-30 16:51] VITALS: BP 135/52
--- NOTE | 2023-06-30 19:43 | NUR ---
SHIFT SUMMARY PT AWAKE DURING SHIFT REPORT, CONFUSED AND DISORIENTED. PT CALLING OUT MOST OF THE DAY, WANTING TO KNOW WHAT TO DO. SPEECH TX IN EARLY FOR SWALLOW EVAL. NO DIFFICULTY IN EATING OR DRINKING. LUNGS CTA. NO COUGHING NOTED TO PRESENT THIS SHIFT. PT PULLED OUT IV SITE RIGHT AFTER START OF SHIFT. NEW IV PLACED BY CHRG RN. PT NOW JUST PULLED THAT IV OUT TONIGHT. PT REMAINS VERY CONFUSED AND UNABLE TO ORIENT AT ALL. THERAPY ATTEMPTED TO WORK WITH PT TODAY. PT IS WEAK AND DIFFICULT TO GET MOBILE D/T RECENT R HIP SX. PT ALSO HAS DIFFICULTY FOLLOWING DIRECTIONS MOST OF THE TIME D/T DEMENTIA. MEDICATED FOR POSSIBLE PAIN, BY COVERING RN; PT DOES NOT ANS QUESTIONS APPROPRIATELY. PT DID SEEM TO REST QUIETLY FOR A SHORT WHILE AFTERWARD. BED BATH AND LINEN CHANGE GIVEN THIS AFTERNOON. BED ALARM ON FOR SAFETY. CALL LT IN REACH.
--- NOTE | 2023-07-01 05:06 | NUR ---
SHIFT SUMMARY PT IS A&O TO SELF ONLY, BEDREST, PT PULLED IV OUT 2X OVERNIGHT CONTINUES TO YELL OUT "HELP", AND "SAVE ME' PROVIDER NOTIFIED ONE TIME DOSE SEROQUEL AND HALDOL PRN ORDERED, SEROQUEL AND PRN PAIN MEDICATION GIVEN X1 PER EMAR, WILL REPORT OFF TO DAY RN
[2023-07-01 08:00] VITALS: BP 166/66
[2023-07-01 08:12] LABS: Bun/Creatinine Ratio 13.1 (12.0-20.0); Calcium, Blood 8.5 mg/dL (8.5-10.1); Creatinine, Blood 0.69 mg/dL (0.40-1.00); Potassium, Blood 4.3 mmol/L (3.5-5.5)
[2023-07-01 09:14] LABS: Hematocrit 25.9 % (33.0-51.0); Hemoglobin 8.4 g/dL (11.5-16.0); Mean Corpuscular HGB 28.9 pg (26.0-34.0); Mean Corpuscular HGB Conc 32.4 g/dL (31.5-36.5); Mean Corpuscular Volume 89 fL (80-100); Platelet Count 379 K/mm3 (150-400); RDW Coefficient Variation 15.2 % (11.7-14.2); RDW Standard Deviation 48.1 fL (35.1-46.3); Red Blood Cell Count 2.91 M/mm3 (3.80-5.20); White Blood Cell Count 11.45 K/mm3 (4.00-11.30)
--- NOTE | 2023-07-01 10:38 | NUR ---
Case Conference: Spoke to Nurse Director Of Health Education Anup at [facility] yesterday regarding this patient. She relayed that the patient was only recently admitted to Home Health, and when the RN arrived to admit her, she instead sent the patient to ED for hypoxia. She was recently hospitalized for a femur fracture. She also has late stage dementia. I spoke to the pt's daughter Shikha yesterday and again this morning. She tells me she is in the process of applying for Medicaid for her mom, but according to Care Management, she has not been successful in completing the paperwork thus far. I asked Shikha the reason for the hold up, and she stated she has had a very hard time gathering the needed documentation, in part due to being the pt's sole caregiver, overwhelming anxiety, and not understanding initially about the "spend down", and other pieces of needed documentation. She is perseverating on the burial plot today, stating she has no idea how to get ahold of the paperwork for it, as it was done years ago in [facility], and she isn't able to ask her mom about it now due to pt's later stage dementia. Shikha states she has become unable to provide proper care for her mom due to the set up of the home, and pt's dementia. Shikha seems to struggle to remain on topic during our lengthy conversations, and while she states she now only needs bank statements from her mom's local bank and one in [place], she also became confused, wondering if she needed to fax the statements to me. I reminded her I'm a nurse at [facility], and she needs to fax or give the requested documents to the [employer] worker Melyssa. During our conversations, I did have to gently redirect Shikha to keep her on topic. She is very friendly over the phone, but comes across very scattered. I have voiced my concerns to Care Management and DANN Peters. I also encouraged the nurse meat department manager at [facility] to follow up with Adult Protective Services if she feels the patient is unsafe in the home due to lack of training, house set up, etc. I encouraged Shikha to focus on getting the needed bank statements today, and will continue to attempt to redirect and encourage her, as the patient is in dire need of placement. Otherwise, the pt will continue the cycle of discharge and readmission to the hospital with increasing frequency.
--- NOTE | 2023-07-01 18:39 | NUR ---
PATIENT ORINETED TO SELF ONLY, UNABLE TO CONSOLE AT TIMES, UNABLE TO REDIRECT OR EDUCATE, MEDICATED FOR PAIN, CONFUSION AND AGGITATION INCREASED AT 5 PM TODAY, PATIENT SCRAPES AT STAFF ARMS WHEN TRYING TO CHANGE ATTENDS, PATIENT PULLING AT LINES AND SURGICAL DRESSING, WILL RELAY TO PM RN
[2023-07-01 18:50] VITALS: BP 150/60
[2023-07-01 19:07] VITALS: BP 146/59
[2023-07-02 04:17] VITALS: BP 162/90
--- NOTE | 2023-07-02 05:38 | NUR ---
SHIFT SUMMARY PT IS A&O TO SELF ONLY, BEDREST DUE TO WEAKNESS, 2L NC SATS LOW TO MID 90'S, VSS, PAIN MEDICATION GIVEN PER Dec FOR RIGHT HIP PAIN, PT WAS NONREDIRECTABLE THIS SHIFT WHILE ATTEMPTING TO REMOVE DRESSING, GOWN, AND NASAL CANNULA, HALDOL GIVEN PER Dec, AQUACELL ON RIGHT HIP REPLACED CDI, BED ALARM ON, CONTINUE POC
[2023-07-02 08:05] VITALS: BP 175/73
[2023-07-02 15:36] VITALS: BP 134/55
--- NOTE | 2023-07-02 18:33 | NUR ---
NO ACUTE CHANGES, NO IMPROVEMENT OR WORSENING OF CONFUSION, PLEASANTLY CONFUSED TO DAY, EASILY REDIRECTED TODAY, FAMILY VISITING, WAIITNG FOR PLACEMENT, IVF, HTN 160-170 SBP, ASYMPTOMATIC. BED BOUND, ATTENDS CANGED FREQUENTLY, PATIENT UNSURE OF WHEN SHE NEEDS TO VOID, INCONTIENET OF BOWEL AND BLADDER, FAMILY IN VISITNG, WILL RELAY TO PM
[2023-07-02 21:03] VITALS: BP 131/54
[2023-07-03 04:48] VITALS: BP 161/73
[2023-07-03 06:10] LABS: Bun/Creatinine Ratio 18.1 (12.0-20.0); Calcium, Blood 8.8 mg/dL (8.5-10.1); Creatinine, Blood 0.61 mg/dL (0.40-1.00)
[2023-07-03 07:39] VITALS: BP 143/64
--- NOTE | 2023-07-03 07:43 | NUR ---
END OF SHIFT SUMMARY PT VERY RESTLESS OVERNIGHT. PRN MELATONIN GIVEN AND EFFECTIVE. IN ADDITION, 2.5MG PRN PO HALDOL GIVEN, PT WAS EXPERIENCING VISUAL HALLUCINATIONS. 0545: PT RECEIVED PRN OXYCODONE AND APAP FOR PAIN BEFORE TURNING PT IN BED. PT CRIED OUT FOR HELP MULTIPLE TIMES THROUGHOUT THE NIGHT. 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 PT INCONTINENT OF BOWEL AND BLADDER, 1 EPISODE OF INCONTINENCE OCCURRED, BED CHANGE x1. PT WAS CONFUSED AND ANXIOUS, WANTING TO GET UP OOB TO USE THE TOILET. PT A&O x1, TO SELF. LOTION WAS APPLIED TO LEGS AND FEET, SOOTHING MUSIC FROM THE CARE TV CHANNEL WAS ON. THIS RN VISITED WITH PT TO TRY TO CALM PT DOWN. PT ON 2L VIA NC, NO REP DISTRESS NOTED. CALL LIGHT WITHIN REACH, WCTM.
[2023-07-03 14:45] VITALS: BP 139/56
[2023-07-03 19:16] VITALS: BP 129/53
--- NOTE | 2023-07-03 19:29 | NUR ---
PATIENT SLEPT THROUGH THE MORNING, AM MEDICATIONS GIVEN LATE, PATIENT PLEASANT AND CONFUSED, YELLING HELP INTERMITTENTLY, PULLED ONE OF THE RIGHT HIP DRESSINGS OFF, REPLACED WITH NEW AQUA OH. MEDICATED FOR PAIN WITH OXY AND TYLENOL, NEW IV PLACED LEFT FOREARM, NS INFUSING AT 75 ML/HR. NO ACUTE CHANGES, RELAYED TO PM RN, CALL LIGHT WITH IN REACH, BED ALARM ON
--- NOTE | 2023-07-04 04:18 | NUR ---
END OF SHIFT SUMMARY NO EVENTS OCCURRED, PT SLEPT WELL OVER WEBSITE ADMIN. PT AMBULATED SAFELY TO [facility], WITH 2P ASSIST STAND PIV. PT HAD STEADY GAIT WITH TRANSFER. A PUREWICK WAS PLACED TO PREVENT EPISODES OF INCONTINENCE/TOTAL BED CHANGES. VSS, PT AFEBRILE. PT CALM AND COOPERATIVE WITH CARE PROVIDED. PT VERY APPRECIATIVE OF CARE. NO SIGNS OF ANXIETY, PT DID NOT CALL OUT FOR HELP. PRN MEDICATIONS OXYCODONE, AND SCHEDULED ZYPREXA EFFECTIVE IN HELPING PT GET COMFORTABLE TO GET SOME SLEEP. PT ABLE TO MAKE NEEDS KNOWN, CALL LIGHT WITHIN REACH, WCTM.
[2023-07-04 05:04] VITALS: BP 150/55
[2023-07-04 05:24] LABS: Hemoglobin 8.5 g/dL (11.5-16.0); Mean Corpuscular HGB 28.7 pg (26.0-34.0); Mean Corpuscular HGB Conc 31.5 g/dL (31.5-36.5); Mean Corpuscular Volume 91 fL (80-100); Mean Platelet Volume 9.8 fL (9.1-12.4); Platelet Count 483 K/mm3 (150-400); RDW Coefficient Variation 15.7 % (11.7-14.2); RDW Standard Deviation 50.9 fL (35.1-46.3); Red Blood Cell Count 2.96 M/mm3 (3.80-5.20); White Blood Cell Count 13.34 K/mm3 (4.00-11.30)
[2023-07-04 06:03] LABS: Percent Saturation 18.2 % (15.0-50.0)
[2023-07-04 08:00] VITALS: BP 172/67
--- NOTE | 2023-07-04 13:50 | NUR ---
RN VERBAL CONSULT WITH DR. CERON WHILE ROUNDING. PT IS TAKING PO NOURISHMENT, DRINKING ENSURE AND EATING FOOD LONG STAFF IS VERBALLY ENCOURAGING HER TO EAT.
[2023-07-04 15:15] VITALS: BP 123/47
--- NOTE | 2023-07-04 17:38 | NUR ---
PT IS ALERT TO SELF ONLY. SHE IS PLEASANT, ALTHOUGH CONFUSED AND WILL CALL OUT INSTEAD OF USE THE CALL LIGHT. SHE LIKES TO SIT AT THE EDGE OF THE BED, AND IS EAGER TO TRANSFER WITH 2 PERSON ASSIST. SHE WILL EAT, BUT REQUIRES ENCOURAGEMENT FROM STAFF AND SMALL FREQUENT SNACKS (EXAMPLE HALF AN ENSURE, A PUDDING, APPLESAUCE, ETC). NO ACUTE CHANGES. NASAL CANULA 2LPM. PUREWICK IN PLACE TO LOW CONTIUNOUS SUCTION, DRAINING BRIGIDO URINE. COOPERATIVE WITH CARE. DENIES PAIN.
[2023-07-04 22:06] VITALS: BP 124/52
[2023-07-05 04:36] VITALS: BP 156/62
--- NOTE | 2023-07-05 07:15 | NUR ---
PT IS PLEASANT AND REDIRECTABLE BUT YELLS FOR ASSIST INSTEAD OF USING CALL LIGHT. FREQUENT CALLS FOR ASSISTANCE THROUGH MOST OF THE NIGHT. X 1-2 ASSIST TO BSC WITH MULTIPLE BM'S. PUREWICK IN PLACE AND EFFECTIVE. TOLERATES PILLS CRUSHED IN APPLESAUCE AND THIN LIQUIDS. AOX1, RECENT HALLUCINATIONS, R HIP PAIN WITH ACTIVITY, DRESSINGS C/D/I. O2 DEPENDENCE IS IMPROVING.
[2023-07-05 07:47] VITALS: BP 151/55
[2023-07-05 16:04] VITALS: BP 155/63
--- NOTE | 2023-07-05 16:35 | NUR ---
PT AOX3 WITH SOME CONFUSION. PT HAS BEEN COOPERATIVE OF CARE. PT WAS ABLE TO GET UP TO CHAIR AND BACK TODAY. TREATED FOR R HIP PAIN PER EMAR. PT HAS PERWICK IN PLACE WHILE IN BED. WILL CONTINUE TO MONITOR.
[2023-07-05 19:53] VITALS: BP 148/56
--- NOTE | 2023-07-06 06:40 | NUR ---
UNEVENTFUL NIGHT. PT AOX1, PLEASANT, REQUIRES FREQUENT REPEAT REMINDERS ABOUT PURE WICK, CARE PLAN, ETC. NO BM THIS SHIFT, 800 MLS URINARY OUTPUT. OXYCODONE 5 MG GIVEN X2. NO ACUTE CHANGES NOTED.
[2023-07-06 07:51] VITALS: BP 163/61
[2023-07-06 15:39] VITALS: BP 140/54
--- NOTE | 2023-07-06 17:17 | NUR ---
NO ACUTE CHANGES. PT ALERT AND COOPERATIVE OF CARE. PT IS INCONTENT AND HAS PERIWICK IN PLACE. PT WORKED WITH OT AND PHYSICAL THERAPY TODAY. NO DISTRESS NOTED. WILL CONTINUE TO MONITOR.
[2023-07-06 19:37] VITALS: BP 106/56
--- NOTE | 2023-07-07 03:13 | NUR ---
FREQUENT REMINDERS TO STAY IN BED AND USE PUREWICK. PT FREQUENTLY REMOVES NASAL CANNULA AND SATS IN UPPER 80'S AT THAT TIME. I SAT WITH PATIENT UNTIL SHE FELL ASLEEP, SHE WAS MORE CALM WHEN STAFF IS PRESENT. NO ACUTE CHANGES NOTED. COMPLAINS OF R HIP PAIN. MEDICATED WITH OXYCODONE AND TYLENOL FOR PAIN.
[2023-07-07 05:41] VITALS: BP 161/57
[2023-07-07 07:19] VITALS: BP 139/78
[2023-07-07 15:18] VITALS: BP 107/46
--- NOTE | 2023-07-07 17:40 | NUR ---
SHIFT SUMMARY- PT IS CONFUSED. SHE WENT FOR CHEST XRAYS THIS SHIFT. SHE SLEPT INTERMITENTLY THROUGHOUT THIS SHIFT. HER BED IS IN THE LOW POSITON AND CALL LIGHT IS WITHIN REACH.
[2023-07-07 19:49] VITALS: BP 100/90
--- NOTE | 2023-07-08 05:24 | NUR ---
SHIFT SUMMARY. A/O X 1-2 VERY PLEASENT AND COOPERATIVE CONFUSED PT WITH R HIP FX, C/O MINIMAL PAIN TO HIP. PT WAS MEDICATED BUT SPIT OUT HALF OF CRUSHED MEDS SAYING THEY WERE TOO BITTER. PT NEEDING A LOT OF REASSURENCE THAT SHE WOULD BE OK IF I LEFT HER BEDSIDE, PT CONSTANTLY CRYING OUT FOR HELP WITH NO OBVIOUS DISTRESS. FINALLY PT FELL ASLEEP AND LOOKS COMFORTABLE.
[2023-07-08 06:29] VITALS: BP 125/60
[2023-07-08 07:24] VITALS: BP 126/58
[2023-07-08 15:21] VITALS: BP 124/54
--- NOTE | 2023-07-08 18:33 | NUR ---
SHIFT SUMMARY; PATIENT VERY BUSY TODAY. TRYING TO GET UP OUT OF BED. SHE IS UP AND DOWN TO BEDSIDE COMMODE. PATIENT COMPLAINS OF PAIN AND IS MEDICATED WITH ROXYCODONE 5MG WITH MINIMAL RESULTS. SHE COMPLAINS OF RIGHT HIP PAIN AND ASKS THIS RN "TO REMOVE MY LEG IT HURTS TO BAD" PATIENT IS CONFUSED AND GOES BETWEEN BE ANGRY WITH STAFF TO TELLING THEM SHE LOVES THEM. PATIENT FEEDS HERSELF AND IS ENCOURAGED TO DRINK FLUIDS TODAY. WILL REMAIN AVAILABLE FOR THIS PATIENT FOR ANY WANTS OR NEEDS THAT MAY COME UP PRIOR TO REPORT TO ONCOMING NOC SHIFT.
[2023-07-08 19:47] VITALS: BP 109/63
[2023-07-09 08:15] VITALS: BP 121/53
[2023-07-09 17:56] VITALS: BP 147/70
--- NOTE | 2023-07-09 18:27 | NUR ---
SHIFT SUMMARY; PATIENT HAD TO BE CUED DURING DAY ON SWALLOWING HER PO MEDICATIONS. SHE IS NOTED TO HOLD THEM IN HER MOUTH AND WAS ENCOURAGED TO TAKE DRINKS THEN SWALLOW THEM. ONE AT A TIME PILLS ARE NOW SUGGESTED FOR THIS PATIENT.
[2023-07-09 19:33] VITALS: BP 124/52
[2023-07-09 21:01] VITALS: BP 98/75
[2023-07-10 03:11] VITALS: BP 102/56
--- NOTE | 2023-07-10 04:35 | NUR ---
PATIENT WITH PAIN AND RESTLESS AT BEGINING OF SHIFT. REMOVING HER OXYGEN FROM HER NOSE AND REQUIRING FREQUENT REDIRECTION. TYLENOL HAD MINIMAL EFFECT ON PAIN, PATIENT ALSO MEDICATED WIH OXYCODONE WHICH IMPROVED HER HIP PAIN. SHE IS RESTING IN BED MOST OF SHIFT, UP ONCE TO USE COMMODE STAND PIVOT 2 PERSON ASSIST WITH 1 MEDIUM BM AND URINARY OUTPUT. BED ALARM ON. CALL LIGHT IN REACH. PATIENT DOES NOT USE CALL LIGHT, RATHER JUST CALLS OUT FOR HELP.
[2023-07-10 07:41] VITALS: BP 126/47
--- NOTE | 2023-07-10 10:40 | NUR ---
RN NOTE MS FRY HAS BEEN VERY SLEEPY TODAY. SHE TOOK MEDS CRUSHED IN PUDDING WITH A LOT OF ENCOURAGEMENT BUT DID NOT EAT OR DRINK ANYTHINK FROM BREAKFAST TRAY. SHE WAS ABLE TO STAND AND PIVOT TO BEDSIDE COMMODE WITH GAIT BELT, WALKER AND 1 PERSON ASSIST, WAS INCONTINENT OF URINE, DID NOT VOID ON BSC. S/B DR MARROQUIN, PT SLEEPY AND CONFUSED, MD NOTIFIED OF LACK OF PO INTAKE. PALLIATIVE CARE ARE FOLLOWING PT, VM LEFT. BED LOW, CALL LIGHT IN REACH, BED ALARM ON.
--- NOTE | 2023-07-10 15:36 | NUR ---
SHIFT SUMMARY MS FRY WAS VERY SLEEPY AND QUIET THIS MORNING BUT DID WAKE UP, HAVE A BED BATH AND SIT UP IN THE CHAIR FOR A WHILE THIS AFTERNOON. SHE WAS MORE INTERACTIVE AND TALKATIVE THIS AFTERNOON. SHE HAS HAD A VERY POOR APPETITE FOR FOOD OR FLUIDS ALL DAY DESPITE ENCOURAGEMENT TO EAT AND DRINK. SHE IS ABLE TO STAND/PIVOT TO CHAIR/BSC WITH MINIMAL ASSISTANCE AND VERBAL CUES. SHE IS FORGETFUL AND GETS MIXED UP WITH SITUATION AND PEOPLE, BUT REDIRECTABLE AND CALM. BED AND CHAIR ALARMS USED. BED LOW, CALL LIGHT IN REACH. RUDDY C,D,I TO R HIP AREA, INCISION OPEN TO AIR. C/O TENDERNES AND PAIN TO ARMS AND RIGHT LEG WHEN SHE IS REPOSITIONING AND MOVING.
[2023-07-10 16:05] VITALS: BP 123/50
[2023-07-10 19:22] VITALS: BP 114/69
[2023-07-11 04:43] LABS: Hematocrit 30.4 % (33.0-51.0); Hemoglobin 9.7 g/dL (11.5-16.0); Mean Corpuscular HGB 29.2 pg (26.0-34.0); Mean Corpuscular HGB Conc 31.9 g/dL (31.5-36.5); Mean Corpuscular Volume 92 fL (80-100); Mean Platelet Volume 9.8 fL (9.1-12.4); Platelet Count 497 K/mm3 (150-400); RDW Coefficient Variation 15.3 % (11.7-14.2); RDW Standard Deviation 51.6 fL (35.1-46.3); Red Blood Cell Count 3.32 M/mm3 (3.80-5.20); White Blood Cell Count 13.34 K/mm3 (4.00-11.30)
[2023-07-11 05:05] LABS: Bun/Creatinine Ratio 46.3 (12.0-20.0); Calcium, Blood 9.4 mg/dL (8.5-10.1); Creatinine, Blood 0.67 mg/dL (0.40-1.00); Potassium, Blood 3.7 mmol/L (3.5-5.5)
--- NOTE | 2023-07-11 06:52 | NUR ---
SHIFT SUMMARY PATIENT RESTLESS AND UP THROUGHOUT THE NIGHT UNTIL APPROX 4:00AM. SHE WAS UP TO [facility] X2 WITH STAND PIVOT 2 PERSON ASSIST. PATIENT CALLED OUT THROUGH THE NIGHT AND C/O PAIN IN RIGHT HIP. MEDICATED PER EMAR. BED IN LOW POSITION, CALL LIGHT IN REACH. PATIENT YELLS OUT AND DOES NOT USE CALL LIGHT.
[2023-07-11 08:17] VITALS: BP 156/57
--- NOTE | 2023-07-11 09:00 | NUR ---
Pt laying in bed confused, calling out, attempting to get oob, bed alarm is activated, follows some commands, lungs are clear t/o, a bit dim in bases, resp even and unlabored, no cough noted, on 2 liters which is her baseline, but removes periodically, hrr, no edema noted, ppp+1, cap refill<3sec, vs stable, afebrile, btx4, abd flat soft nontender, voids via bsc and has briefs in place, skin has bruising to right hip and pelvis, dhruv, one person assist to bsc, call light in reach.
[2023-07-11 14:50] VITALS: BP 104/57
--- NOTE | 2023-07-11 18:05 | NUR ---
pt has been busy, calling out frequently and getting up to bsc every ten minutes for a while, states she wants someone in the room to visit, brought her out in the morse so she can see people, eating her dinner in her recliner.
[2023-07-11 19:50] VITALS: BP 115/64
[2023-07-12 04:51] VITALS: BP 153/86
--- NOTE | 2023-07-12 06:50 | NUR ---
PATIENT PROFOUNDLY CONFUSED AND IMPULSIVE ALL NIGHT DESPITE MULTIPLE MEDICAATIONS TO HELP CALM AND DE STRESS THE PATIENT. FREDIS VEST PLACED AT 2030 FOR PATIENT SAFETY SHE WAS OOB EVERY 2-3 MINUTES AND UNWILLING TO ACCEPT HELP OR EVEN USE FWW. AFTER PLACEMENT OF VEST, PATIENT YELLED CONTINIUOUSLY FOR THE REMAINDER OF THE SHIFT. HALLUCINATING THAT HER DAUGHTER NAKUL WAS IN THE ROOM (NO COMPANY OVERNIGHT)IN ADDITION TO BEDTIME ORAL ZYPREXA AND REMERON, AN ADDITIONAL DOSE OF IM ZYPREXA WELL A 10MG DOSE OF IM GEODON DID NOT EVEN SLOW DORENE ENOUGHT TO RELAX. RUDDY RIGHT HIP AREA SLIGHTLY RED FROM PATIENT SCRATCHING AND MOVING. ATTEMPTED MEPILEX, BUT IT WAS PULLED OFF. AREA CLEANSED AND LOTION APPLIED.
[2023-07-12 07:41] VITALS: BP 128/57
[2023-07-12] MEDS ORDERED: Prinivil10 MG PO (15:00)
[2023-07-12] MEDS ORDERED: HYDCHL12.5 PO (15:01)
[2023-07-12] MEDS ORDERED: OLAN5 PO ×2 (15:02)
[2023-07-12] MEDS ORDERED: Vitamin D1000 UNI1 PO (15:03)
[2023-07-12] MEDS ORDERED: MIRALAX17 GM PO (15:03)
[2023-07-12 16:18] VITALS: BP 96/84
--- NOTE | 2023-07-12 17:09 | NUR ---
Case Conference: Met with DIRECTOR CARDIOVASCULAR for Care Management, she has been unable to reach pt's daughter for discharge plans. She requested I try to reach her, and I attempted. I reached her voicemail, and left a message.
--- NOTE | 2023-07-12 17:30 | NUR ---
SHIFT SUMMARY PT AxOx1-SELF, SOMETIMES +SURROUNDINGS, BUT EVEN THAT IS COMPROMISED WITH HER VISION IMPAIRMENT. PT WAS IN FREDIS VEST UPON ARRIVAL THIS AM. PT APPEARED RELAXED, DROWSY AND COMPLIANT FOR A FEW HOURS, THEREFORE THE FREDIS WAS REMOVED. THE PATIENT CONTINUED TO STRUGGLE WITH FOLLOWING DIRECTION AND REDIRECT WHEN NEEDED. PT HAD DIARRHEA THIS AFTERNOON. PT BECAME VERY INSISTENT THAT SHE WAS GOING HOME WHILE DISPLAYING TOSSING AND TURNING AND BLE RESTLESS MOVEMENTS. SHE WAS ALSO SITTING UP AND ATTEMPTING TO GET OOB SEVERAL TIMES IN THE AFTERNOON. PT WAS MEDICATED PER EMAR WITH, WHICH SEEMED MILDLY EFFECTIVE. ORTHO IN FOR EVAL TODAY, RUDDY REMOVED. PT WAS CLEARED FOR WEIGHT BEARING TOLERATED ON RLE RE: POST OP 06/25/23 R HIP FX. PT RECEIVED SHOWER THIS SHIFT. DISCHARGE ORDERED TODAY. UNFORTUNATELY, THE DAUGHTER, WILMER, CONTESTED THE DC. COLLEGE ASSOCIATE TO FOLLOW UP TOMORROW. PT CURRENTLY RESTING IN BED WITH CALL LIGHT IN REACH. SLEEPING AT THIS TIME, APPEARING COMFORTABLE.
--- NOTE | 2023-07-12 19:29 | NUR ---
FAMILY DISCUSSION RE: DISCHARGE AFTER RECEIVING DC ORDERS FOR PT TODAY, THIS RN ATTEMPTED TO CALL WILMER, PT'S DAUGHTER WITH WHOM SHE WAS PREVIOUSLY LIVING WITH. PT'S DAUGHTER DID NOT ANSWER PHONE x2. ON 3RD ATTEMPT, PT'S SON, JEREMIAH ANSWERED WILMER'S PHONE EXPLAINING THAT WILMER IS ILL AND WILL BE UNABLE TO CARE FOR THEIR MOTHER ANY LONGER. JEREMIAH GAVE CONTACT INFO FOR A FAMILY FRIEND, YARIEL BASSETT, WITH A VERBAL PERMISSION THAT SHE BE CONTACTED FOR ALL FURTHER DECISIONS REGARDING THE PATIENT'S CARE. INFO FORWARDED TO FIELD ADVISOR. PT DC ON HOLD FOR THE TIME BEING.
[2023-07-12 21:33] VITALS: BP 99/62
--- NOTE | 2023-07-13 03:49 | NUR ---
SHIFT SUMMARY. PT HAS BEEN AOX1, VERY RESTLESS, IMPULSIVE THROUGHOUT SHIFT. FREDIS VEST WAS PLACED FOR PT SAFETY JUST BEFORE SHIFT CHANGE. CALLED HOSPITALIST AFTER SHIFT REPORT AND ACQUIRED ORDER FOR FREDIS RESTRAINT DUE TO UNSAFE BEHAVIOR/IMPULSIVE ATTMEMPTS OOB. PT WAS ABLE TO RELAX FOR A WHILE AT THE BEGINNING OF SHIFT BUT HAS BECOME INCREASINGLY CONFUSED, RESTLESS, AND IMPULSIVE THE SHIFT HAS GONE ONE. VERY FREQUENTLY CALLING OUT INTO [place], APPEARING TO HALLUCINATE. REPORTS SEEING ANIMALS RUN INTO HER BATHROOM THAT SHE HAS TO GET OUT OF BED TO COLLECT. ONLY OVER THE PAST 40 MINUTES OR SO HAS PT SLEPT AT ALL THIS SHIFT. NO PAIN REPORTED THIS SHIFT. HAS BEEN SATTING WELL ON ROOM AIR SHE WOULD NOT TOLERATE NC OR LEAVE IT IN PLACE. APPEARS TO BE VISUALLY IMPAIRED SHE IS A LITTLE OFF WHEN REACHING FOR THINGS AND CAN NOT CONSISTENTLY TELL ME HOW MANY FINGERS I AM HOLDING UP WHEN I HAVE MY HAND ~3 [address] IN FRONT OF HER. DESPITE CONFUSION, HAS BEEN MOSTLY PLEASANT AND HAS NOT BEEN COMBATIVE OR OVERLY AGITATED WITH STAFF. USES CALL LIGHT SPORADICALLY. BED LOCKED IN LOWEST POSITION. CALL LIGHT LEFT WITHIN REACH.
[2023-07-13 04:22] VITALS: BP 140/65
[2023-07-13 07:29] VITALS: BP 151/54
[2023-07-13 16:32] VITALS: BP 116/64
--- NOTE | 2023-07-13 17:08 | NUR ---
PT IS ALERT ORIENTED TO SELF. PT HAS BEEN CONFUSED BUT EASILY REDIRECTED. PT IS UP WITH MINIMAL ASSIST TO THE CHAIR AND THE BATHROOM USEING THE GAITE BELT AND FWW. THE PT APPEARS TO BE BREATHING EASILY ON RA AT THIS TIME. THE PT WAS DROWSY DURING BREAKFAST AND ONLY ATE A FEW BITES. PT WAS FULLY AWAKE AT LUNCH WAS ASSISTED TO THE CHAIR AND WAS ABLE TO EAT A SMALL AMOUNT OF THE FINGER FOODS. PT WAS TAKEN OUT OF THE VEST RESTRAINT THIS AM. CALL LIGHT IN REAC. BED IN THE LOW DISTANTION
[2023-07-13 19:13] VITALS: BP 120/50
[2023-07-14 03:45] VITALS: BP 127/50
--- NOTE | 2023-07-14 03:53 | NUR ---
SHIFT SUMMARY. PT REMAINS AOX1, PROFOUNDLY CONFUSED, APPEARING TO HALLUCINATE AT TIMES. DESPITE THIS, PT HAS REMAINED PLEASANT THROUGHOUT SHIFT AND HAS NOT BECOME IRRITATED/AGITATED WITH CARE. CONTINUES TO FREQUENTLY ATTEMPT OOB IMPULSIVELY BUT MOVES SLOW AND STAFF ARE ABLE TO REPOSITION PATIENT AND REDIRECT TO MAINTAIN PATIENT SAFETY. REMAINS DIFFICULT TO REDIRECT BUT IS ABLE TO REST FOR EXTENDED PERIODS OF TIME BETWEEN REDIRECTION. BED ALARM REMAINS IN PLACE FOR SAFETY. INCONTINENT THIS SHIFT. SOMEWHAT MORE ANXIOUS THIS SHIFT THAN PREVIOUS SHIFT WITH THIS NURSE WITH PATIENT REPORTING BEING AFRAID OF EARLY IN SHIFT. SINCE THIS TIME, PT REMAINS ANXIOUS BUT NONE MORESO THAN PREVIOUS SHIFT. SATTING WELL ON ROOM AIR. BED LOCKED IN LOWEST POSITION.CALL LIGHT LEFT WITHIN REACH.
[2023-07-14 07:19] VITALS: BP 100/57
[2023-07-14] MEDS ORDERED: BENADRYL25 MG PO (12:32)
[2023-07-14] MEDS ORDERED: MELATONIN5 M1 PO (12:33)
[2023-07-14] MEDS ORDERED: OXYC5 PO (12:34)
--- NOTE | 2023-07-14 13:55 | NUR ---
PT DISCHARGED THE PTS FAMILY VERBALIZED UNDERSTANDING OF THE DC INSTRUCTIONS. PT PRESCRIPTIONS REFAXED TO ANEESH PANDYA AND HARD COPY PRESCRIPTION GIVEN TO TE PTS DAUGHTER. THE PT WAS TRANSFERED VIA WHEELCHAIR ACCOMPANIED BY THE INSPECTOR SHEET METAL PARTS AND HER FAMILY. BELONGINS RELEASED TO THE FAMILY
== END 2023-07-14 12:58 | disposition home or self-care (01) | DRG 193 ==
LOC: ER 16:50 → MEDS 22:34 → ENPENDDIS 07-12 10:48 → MEDS 07-14 12:58
PROVIDERS: Family Medicine; Internal Medicine; Student in an Organized Health Care Education/Training Program; ADMIT Internal Medicine
DX: J18.9 Pneumonia, unspecified organism (principal); J96.01 Acute respiratory failure with hypoxia; S72.91XA Unspecified fracture of right femur, initial encounter for closed fracture; G93.40 Encephalopathy, unspecified; D62 Acute posthemorrhagic anemia; J98.11 Atelectasis; Z20.822 Contact with and (suspected) exposure to COVID-19; Z66 Do not resuscitate; F03.90 Unspecified dementia, unspecified severity, without behavioral disturbance, psychotic disturbance, mood disturbance, and anxiety; F32.A Depression, unspecified; I10 Essential (primary) hypertension; R56.9 Unspecified convulsions; D72.829 Elevated white blood cell count, unspecified; W06.XXXA Fall from bed, initial encounter; Z79.01 Long term (current) use of anticoagulants; Z79.899 Other long term (current) drug therapy; Z86.73 Personal history of transient ischemic attack (TIA), and cerebral infarction without residual deficits; Z98.890 Other specified postprocedural states; Z23 Encounter for immunization
CPT/HCPCS: 0241U; 36415; 71046; 73502; 80048; 80053; 82728; 83540; 83550; 83605; 84145; 85025; 85027; 87040; 92610; 93005; 93010; 94760; 96360; 96361; 97162; 97166; 97530; 97535; 99285-25; A9270; J1630; J2543; J3486; J7030